=== PATIENT | male | born 1945 | race Caucasian/White ===

== ENCOUNTER 2018-07-18 13:44 | Inpatient (IN) | payer BC, MEDICARE ==
--- NOTE | 2018-07-18 13:58 | ED ---
Lower Extremity Injury HPI - General Chief Complaint: Extremity Injury, Lower Stated Complaint: Fall, hip pain Time Seen by Provider: 07/18/18 13:47 Source: patient, RN notes reviewed Mode of arrival: ambulatory Limitations: no limitations - History of Present Illness Initial Comments: 73-year-old male presents emergency Department chief complaint of right hip pain. Patient states she is cleaning out his vehicle yesterday states that he tripped over the curb and fell onto his right hip. Patient states that he was able to bear tooth pain Into his vehicle drove home states that his daughter helped him get into his house and states that the pain worsened today and was unable to bear weight. Patient denies any head injury or loss consciousness yesterday. Patient said no prior hip fractures. Patient states that he otherwise feels well he denies any any cold-like symptoms, chest pain, shortness breath, nausea vomiting diarrhea constipation. - Related Data Home Medications Medication Instructions Recorded Confirmed Aspirin EC [Ecotrin Low Dose] 81 mg PO DAILY 07/18/18 07/18/18 Esomeprazole Magnesium [NexIUM] 40 mg PO DAILY 07/18/18 07/18/18 Gabapentin [Neurontin] 300 mg PO TID 07/18/18 07/18/18 Isosorbide Mononitrate ER [Imdur] 30 mg PO DAILY 07/18/18 07/18/18 Metoclopramide HCl [Reglan] 2.5 mg PO DAILY 07/18/18 07/18/18 Metoprolol Succinate [Toprol Xl] 100 mg PO DAILY 07/18/18 07/18/18 Nitroglycerin Sl Tabs [Nitrostat] 0.4 mg SUBLINGUAL Q5M PRN 07/18/18 07/18/18 [place]-3 Acid Ethyl Esters [Lovaza] 2 gm PO BID 07/18/18 07/18/18 Ranolazine [Ranexa] 500 mg PO BID 07/18/18 07/18/18 Simvastatin [Zocor] 10 mg PO HS 07/18/18 07/18/18 busPIRone HCl [Buspar] 10 mg PO BID 07/18/18 07/18/18 oxyCODONE HCL [OxyCONTIN] 30 mg PO Q12H 07/18/18 07/18/18 oxyCODONE HCL/ACETAMINOPHEN 1 tab PO Q8H PRN 07/18/18 07/18/18 [Percocet 10-325 mg] Allergies Allergy/AdvReac Type Severity Reaction Status Date / Time No Known Allergies Allergy Verified 07/18/18 14:31 Review of Systems ROS Statement: Those systems with pertinent positive or pertinent negative responses have been documented in the HPI. ROS Other: All systems not noted in ROS Statement are negative. 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 Absent: tenderness, meningismus, lymphadenopathy Respiratory exam: Present: wheezes, decreased breath sounds. Absent: normal lung sounds bilaterally, respiratory distress, rales, rhonchi, stridor Cardiovascular Exam: Present: regular rate, normal rhythm, normal heart sounds. Absent: systolic murmur, diastolic murmur, rubs, gallop, clicks Extremities exam: Present: other (Pulses of the lower extremity equal bilaterally, tenderness the right hip region he is slightly rotated positioning and he has pain with any movement to the right hip) Neurological exam: Present: alert, oriented X3, CN II-XII intact Course Vital Signs 07/18/18 13:47 Temperature 100.4 F H Pulse Rate 96 Respiratory 18 Rate Blood Pressure 131/65 O2 Sat by Pulse 83 L Oximetry - Reevaluation(s) Reevaluation #1: 07/18/18 14:32 Patient received's narcotic pain meds prior arrival via EMS. Does not request more on initial evaluation Disposition Clinical Impression: Closed right hip fracture Disposition: ADMITTED IP TO THIS [facility] Condition: Fair Referrals: Brodie Banks DO [Primary Care Provider] - 1-2 days
--- NOTE | 2018-07-18 14:23 | XR ---
EXAMINATION TYPE: XR chest 1V DATE OF EXAM: 07/18/2018 COMPARISON: NONE HISTORY: Pain, trauma TECHNIQUE: Single frontal view of the chest is obtained. FINDINGS: There is no focal air space opacity, pleural effusion, or pneumothorax seen. The cardiac silhouette size is within normal limits. The osseous structures are intact. IMPRESSION: No acute process.
--- NOTE | 2018-07-18 14:27 | XR ---
EXAMINATION TYPE: XR Hip RT and AP Pelvis DATE OF EXAM: 07/18/2018 COMPARISON: NONE HISTORY: Trauma and pain TECHNIQUE: A single AP view of the pelvis is obtained. Two views of the right hip are obtained. FINDINGS: There is an intertrochanteric right proximal femoral fracture with slight varus deformity and minimal displacement. No dislocation. Degenerative disc changes noted incidentally within the lum bar spine. There are vascular calcifications present. IMPRESSION: Fracture of the proximal right femur.
[2018-07-18] MEDS ORDERED: ONDANSETRON 4 MG/2 ML VIAL IVP PRN (14:40)
[2018-07-18] MEDS: MORPHINE SULFATE 4 MG/ML SYRINGE IV PRN (15:00)
[2018-07-18 15:02] LABS: Basophils % (A) 0 %; Eosinophils # (A) 0.1 k/uL (0-0.7); Eosinophils % (A) 1 %; HCT 39.6 % (39.0-53.0); HGB 13.6 gm/dL (13.0-17.5); Lymphocytes # (A) 1.3 k/uL (1.0-4.8); Lymphocytes % (A) 14 %; MCH 30.9 pg (25.0-35.0); MCHC 34.3 g/dL (31.0-37.0); MCV 90.3 fL (80.0-100.0); Mean Platelet Volume 6.8; Monocytes # (A) 0.6 k/uL (0-1.0); Monocytes % (A) 7 %; Neutrophils # (A) 7.2 k/uL (1.3-7.7); Neutrophils % (A) 78 %; Platelet Count 159 k/uL (150-450); RBC 4.39 m/uL (4.30-5.90); RDW 12.5 % (11.5-15.5); WBC 9.2 k/uL (3.8-10.6)
[2018-07-18 15:15] LABS: ALT 19 U/L (21-72); AST 31 U/L (17-59); Albumin 3.8 g/dL (3.5-5.0); Alkaline Phosphatase 37 U/L (38-126); Anion Gap 9 mmol/L; Blood Urea Nitrogen 19 mg/dL (9-20); Calcium 8.7 mg/dL (8.4-10.2); Carbon Dioxide 27 mmol/L (22-30); Chloride 101 mmol/L (98-107); Glucose 115 mg/dL (74-99); Potassium 4.7 mmol/L (3.5-5.1); Sodium 137 mmol/L (137-145); Total Bilirubin 0.7 mg/dL (0.2-1.3); Total Protein 6.8 g/dL (6.3-8.2)
[2018-07-18 15:24] LABS: INR 1.1 (<1.2); Partial Thromboplastin Time 28.1 sec (22.0-30.0); Prothrombin Time 10.7 sec (9.0-12.0)
[2018-07-18] MEDS ORDERED: NALOXONE 0.4 MG/ML 1 ML VIAL IV PRN (16:52)
[2018-07-18] MEDS ORDERED: oxyCODONE-APAP 10-325MG 1 EACH TAB PO PRN (16:59)
[2018-07-18] MEDS ORDERED: NITROGLYCERIN SL TABS 0.4 MG TAB SUBLINGUAL PRN (16:59)
--- NOTE | 2018-07-18 17:02 | P.HPOR ---
History of Present Illness H&P Date: 07/18/18 Chief Complaint: Right hip fracture Patient is a 73-year-old male who presented to [facility] this afternoon with regards to pain involving the right hip. Patient initially had a fall yesterday evening while he was washing his car, he tripped over the curb and fell onto the hip. Patient was able to ambulate, he was able to get initially into the house and into his room. He woke up this morning, and was unable to put any weight on the right hip. He is brought to [facility] at that time. Upon arrival, imaging and lab tests were done. Images demonstrated a right intertrochanteric hip fracture. I was contacted by the emergency room staff, the case was discussed. I was able to discuss the case, including images attending Dr. Freed. Plan was for admission to our service, with likely surgical intervention. Consults were placed for internal medicine for clearance this. Patient was examined today at bedside, he has family present with him. Prior to my arrival, he did receive a dose of IV pain medication. He is quite sleepy on my exam, but he is able to answer my questions adequately. He denies any other extremity discomfort besides the right hip. Pain medicine seems to be helping with that at this time. He denies any previous surgery involving the right hip. Patient does take heavy dose oral narcotics for a chronic back problem. Patient is prescribed medication by his primary care doctor. Patient currently denies any headaches, lightheadedness, chest pain or shortness of breath, fever chills, abdominal discomfort. Review of Systems Constitutional: Reports as per HPI Past Medical History Past Medical History: Coronary Artery Disease (CAD), COPD, GERD/Reflux, Hyperlipidemia, Hypertension, Memory Impairment, Myocardial Infarction ([place]), Osteoarthritis (OA) Additional Past Medical History / Comment(s): per pt's daughter ,pt had slight heart attack in his 40's. at age 17 head back injuries from farming accident, ahs some mild memory problems."chronic back pain". Last Myocardial Infarction Date:: unk History of Any Multi-Drug Resistant Organisms: None Reported Additional Past Surgical History / Comment(s): surgery on head from farm injury patient states when he was a kid. cortison inj (back) Past Anesthesia/Blood Transfusion Reactions: No Reported Reaction Smoking Status: Current every day smoker - Past Family History Father History Unknown: Yes Additional Family Medical History / Comment(s): never knew his dad Mother Family Medical History: Coronary Artery Disease (CAD) Additional Family Medical History / Comment(s): during open heart Medications and Allergies Home Medications Medication Instructions Recorded Confirmed Type Aspirin EC [Ecotrin Low Dose] 81 mg PO DAILY 07/18/18 07/18/18 History Esomeprazole Magnesium [NexIUM] 40 mg PO DAILY 07/18/18 07/18/18 History Gabapentin [Neurontin] 300 mg PO TID 07/18/18 07/18/18 History Isosorbide Mononitrate ER [Imdur] 30 mg PO DAILY 07/18/18 07/18/18 History Metoclopramide HCl [Reglan] 2.5 mg PO DAILY 07/18/18 07/18/18 History Metoprolol Succinate [Toprol Xl] 100 mg PO DAILY 07/18/18 07/18/18 History Nitroglycerin Sl Tabs [Nitrostat] 0.4 mg SUBLINGUAL Q5M PRN 07/18/18 07/18/18 History [place]-3 Acid Ethyl Esters [Lovaza] 2 gm PO BID 07/18/18 07/18/18 History Ranolazine [Ranexa] 500 mg PO BID 07/18/18 07/18/18 History Simvastatin [Zocor] 10 mg PO HS 07/18/18 07/18/18 History busPIRone HCl [Buspar] 10 mg PO BID 07/18/18 07/18/18 History oxyCODONE HCL [OxyCONTIN] 30 mg PO Q12H 07/18/18 07/18/18 History oxyCODONE HCL/ACETAMINOPHEN 1 tab PO Q8H PRN 07/18/18 07/18/18 History [Percocet 10-325 mg] Allergies Allergy/AdvReac Type Severity Reaction Status Date / Time No Known Allergies Allergy Verified 07/18/18 14:31 Physical Examination Right lower extremity: No obvious open lesions or sores present, no obvious areas of ecchymosis or soft tissue swelling Obvious external rotation and slight shortening of the leg is noted compared to contralateral side Calf is soft, no tenderness with palpation Plantar flexion, dorsiflexion, EHL, FHL are intact Sensation to light touch throughout extremities intact Logroll maneuver reproduces pain of the hip, he is unable to straight leg raise Results - Labs Labs: Abnormal Lab Results - Last 24 Hours (Table) 07/18/18 Range/Units 14:50 Glucose 115 H (74-99) mg/dL ALT 19 L (21-72) U/L Alkaline Phosphatase 37 L (38-126) U/L H & H 07/18/18 Range/Units 14:50 Hgb 13.6 (13.0-17.5) gm/dL Hct 39.6 (39.0-53.0) % Coagulation 07/18/18 Range/Units 14:50 INR 1.1 (<1.2) Result Diagrams: 07/18/18 14:50 07/18/18 14:50 - Diagnostic results Hip x-ray: report reviewed, image reviewed Assessment and Plan Plan: Imaging: AP pelvis and AP right hip user obtained. Images do demonstrate a right intertrochanteric hip fracture Assessment: Right intertrochanteric femur fracture Status post fall from standing Other medical comorbidities Plan: I was able to discuss the case, including the physical exam findings and imaging studies with attending Dr. Freed. We would like to proceed with surgical intervention, more specific an intramedullary nail of the right femur. Our plan is to proceed with this on 07/19/2018. Risk and benefits of the procedure were discussed with the patient's family today bedside, this including but not excluding blood loss, infection, development blood clots, pain stiffness, need for subsequent surgery, risk of mortality, etc. With the patient being slightly drowsy from the pain medication, I will discuss this further with him tomorrow and answer any further questions. After discussing the case with internal medicine, due to his cardiac history and echocardiogram will be ordered, and we will await cardiac recommendations Obtain consent Pain control, IV medication as needed Nothing by mouth after midnight Ramirez catheter placement Nonweightbearing right lower extremity GI and DVT prophylaxis, we'll initiate subcu medication after surgery with plan for orals at discharge Further recommendations to follow Time with Patient: Less than 30
--- NOTE | 2018-07-18 17:25 | P.CONS ---
History of Present Illness - Reason for Consult Consult date: 07/18/18 medical risk stratification, coronary artery disease Requesting physician: George Freed - Chief Complaint right hip pain - History of Present Illness Patient is a 73-year-old male past medical history of atherosclerotic coronary artery disease, tobacco abuse, and GERD who presented to the emergency department after a fall with hip pain. In the ER he underwent a comprehensive evaluation. On arrival he was found to be satting 83% on room air and had a slight fever of 100.4. Initial laboratory analysis showed slightly elevated glucose at 1:15 was otherwise unremarkable. Chest x-ray showed no acute process. EKG is reviewed by myself reveals normal sinus rhythm at a rate of 83. His x-ray showed a right proximal femur fracture. Dr. Freed team was contacted and requested us to see the patient for medical risk stratification. Patient seen and examined at bedside. Yesterday he was cleaning his car when he turned and pivoted and tripped on the curb. He immediately felt pain in his right hip. His daughter was with him and helped him into the car and he drove home. Then overnight last night his hip pain increased. Today he was unable to bear weight on his hip and he presented to the hospital. He denies any syncopal episode, lightheadedness or dizziness, or chest pain with that episode. He did not strike his head. He reports that he has been his typical state of health. No recent cough, cold, fever, chills, shortness of breath, nausea, vomiting, diarrhea, constipation, or dysuria. He does have chest pain at baseline. He sees Dr. Ngo out of [facility]. He reports that for the last several months he has been having chest pain several times monthly. It is always with exertion and never at rest. He takes an aspirin and it seems to relieve itself within about 15 minutes. He has also been using his nitro intermittently. He states it is not associated with shortness of breath, nausea , lightheadedness, or palpitations. To call or chest pain but states it is "feeling" but then states it is in his chest and 8. He was supposed to have a stress test several months ago with his physical therapy teacher missed the appointment. He reports that he has had a stress test but he is unsure when. He has never had a cardiac catheterization, stent to his heart, or bypass surgery. He reports that he does multiple flights of stairs daily without any chest pain or shortness of breath and his home. However he states he would be unable to walk one to 2 city blocks due to his back giving out and back pain. He reports no recent changes in his medications. Review of Systems Pertinent positives and negatives as discussed in HPI, a complete review of systems was performed and all other systems are negative. Past Medical History Past Medical History: Coronary Artery Disease (CAD), COPD, GERD/Reflux, Hyperlipidemia, Hypertension, Memory Impairment, Myocardial Infarction ([place]), Osteoarthritis (OA) Additional Past Medical History / Comment(s): per pt's daughter ,pt had slight heart attack in his 40's. at age 17 head back injuries from farming accident, some mild memory problems."chronic back pain". Last Myocardial Infarction Date:: unk History of Any Multi-Drug Resistant Organisms: None Reported Additional Past Surgical History / Comment(s): surgery on head from farm injury patient states when he was a kid. cortison inj (back) Past Anesthesia/Blood Transfusion Reactions: No Reported Reaction Smoking Status: Current every day smoker Past Alcohol Use History: None Reported Past Drug Use History: None Reported Additional History: Lives alone, no assistive devices - Past Family History Father History Unknown: Yes Additional Family Medical History / Comment(s): never knew his dad Mother Family Medical History: Coronary Artery Disease (CAD) Additional Family Medical History / Comment(s): during open heart in her late 50s Medications and Allergies Home Medications Medication Instructions Recorded Confirmed Type Aspirin EC [Ecotrin Low Dose] 81 mg PO DAILY 07/18/18 07/18/18 History Esomeprazole Magnesium [NexIUM] 40 mg PO DAILY 07/18/18 07/18/18 History Gabapentin [Neurontin] 300 mg PO TID 07/18/18 07/18/18 History Isosorbide Mononitrate ER [Imdur] 30 mg PO DAILY 07/18/18 07/18/18 History Metoclopramide HCl [Reglan] 2.5 mg PO DAILY 07/18/18 07/18/18 History Metoprolol Succinate [Toprol Xl] 100 mg PO DAILY 07/18/18 07/18/18 History Nitroglycerin Sl Tabs [Nitrostat] 0.4 mg SUBLINGUAL Q5M PRN 07/18/18 07/18/18 History [place]-3 Acid Ethyl Esters [Lovaza] 2 gm PO BID 07/18/18 07/18/18 History Ranolazine [Ranexa] 500 mg PO BID 07/18/18 07/18/18 History Simvastatin [Zocor] 10 mg PO HS 07/18/18 07/18/18 History busPIRone HCl [Buspar] 10 mg PO BID 07/18/18 07/18/18 History oxyCODONE HCL [OxyCONTIN] 30 mg PO Q12H 07/18/18 07/18/18 History oxyCODONE HCL/ACETAMINOPHEN 1 tab PO Q8H PRN 07/18/18 07/18/18 History [Percocet 10-325 mg] Allergies Allergy/AdvReac Type Severity Reaction Status Date / Time No Known Allergies Allergy Verified 07/18/18 14:31 Physical Exam Osteopathic Statement: *. No significant issues noted on an osteopathic structural exam other than those noted in the History and Physical/Consult. Vitals: Vital Signs Temp Pulse Resp BP Pulse Ox 07/18/18 14:50 88 18 134/73 97 07/18/18 13:47 100.4 F H 96 18 131/65 83 L Intake and Output 07/18/18 07/18/18 07/18/18 06:59 14:59 22:59 Other: Weight 70.307 kg General: non toxic, mild distress, appears at stated age, normal weight Derm: no unusual rashes/lesions no unusual ecchymoses, warm, dry Head: atraumatic, normocephalic, symmetric Eyes: EOMI, no lid lag, anicteric sclera, pupils pin point ENT: Nose and ears atraumatic, no thrush, no pharyngeal erythema Neck: No thyromegaly, no cervical lymphadenopathy, trachea midline, supple Mouth: no lip lesion, mucus membranes moist Cardiovascular: S1S2 reg, no murmur, positive posterior tibial pulse bilateral, no edema, capillary refill less than 2 seconds Lungs: decreased bs bilateral, no rhonchi, no rales , no accessory muscle use Abdominal: soft, nontender to palpation, no guarding, no appreciable organomegaly, normal bowel sounds Ext: no gross muscle atrophy, muscle strength 5 out of 5 in b/l upper extremities and Left lower extremity grossly, can wiggle toes on right nothing more due to pain,, no contractures, Neuro: CN II-XI grossly intact, light touch intact all 4 extremities, finger to nose within normal limits, Psych: Alert, oriented, appropriate affect, slightly confused due to morphine Results CBC & Chem 7: 07/18/18 14:50 07/18/18 14:50 Labs: Abnormal Lab Results - Last 24 Hours (Table) 07/18/18 Range/Units 14:50 Glucose 115 H (74-99) mg/dL ALT 19 L (21-72) U/L Alkaline Phosphatase 37 L (38-126) U/L Comments: EKG as reviewed by myself reveals normal sinus rhythm at a rate of 83, normal axis, no ST-T wave changes, and normal intervals Assessment and Plan Assessment: Right proximal femur fracture -Management per orthopedic surgery -Will ask cardiology to evaluate the patient for clearance secondary to recurrent chest pain with history of coronary artery disease -Maintain nothing by mouth after midnight status -Pain control, home pain medications were resumed - insert palma Chest pain with exertion -Continue home Imdur, beta agata, Ranexa -Cardiology evaluation -Obtain records from outpatient physical therapy teacher Dr. Ngo out of [facility] -Echocardiogram in a.m. -Currently chest pain free GERD -Continue PPI -Hold Reglan in combination with pain medications Hypertension, controlled -Continue with metoprolol -Follow blood pressures Dyslipidemia -Statin therapy Thank you for allowing us to participate in the care of this patient. Do not hesitate to contact us with questions. Someone can be reached from the [facility] hospitalist group at all hours of the day at [phone]. Red team during day time hours [phone]. DVT: SCD Surrogate decision: Saida, [id number] Code status: Full
[2018-07-18] MEDS: oxyCODONE ER 15 MG TAB.ER.12H PO SCH (21:55)
[2018-07-18] MEDS: FAMOTIDINE 20 MG TAB PO SCH (21:56)
[2018-07-18] MEDS: GABAPENTIN 300 MG CAP PO SCH (21:56)
[2018-07-18] MEDS: RANOLAZINE 500 MG TAB.ER.12H PO SCH (21:56)
[2018-07-18] MEDS: busPIRone HCl 10 MG TAB PO SCH (21:56)
[2018-07-18] MEDS: ATORVASTATIN 10 MG TAB PO SCH (21:56)
[2018-07-18] MEDS: OMEGA ACID ETHYL ESTERS PO SCH (22:11)
[2018-07-18] MEDS ORDERED: HYDROmorphone 0.5 MG/0.5 ML SYRINGE IVP PRN (22:21)
[2018-07-18] MEDS ORDERED: MORPHINE SULFATE 4 MG/ML SYRINGE IV PRN (22:21)
[2018-07-18] MEDS ORDERED: LACTATED RINGERS 1,000 ML IV SCH (22:30)
[2018-07-19 00:30] LABS: Appearance,Urine Clear (Clear); Bilirubin,Urine Negative (Negative); Blood,Urine Negative (Negative); Color,Urine Yellow; Glucose,Urine (UA) Negative (Negative); Ketones,Urine Negative (Negative); Leukocyte Esterase,Urine Negative (Negative); Nitrite,Urine Negative (Negative); Protein,Urine Trace (Negative); Specific Gravity,Urine 1.021 (1.001-1.035)
[2018-07-19] MEDS: oxyCODONE ER 15 MG TAB.ER.12H PO SCH ×2 (06:02→20:04)
[2018-07-19] MEDS: OMEGA ACID ETHYL ESTERS PO SCH ×2 (07:49→21:11)
[2018-07-19] MEDS: FAMOTIDINE 20 MG TAB PO SCH (07:49)
[2018-07-19] MEDS: MORPHINE SULFATE 4 MG/ML SYRINGE IV PRN ×3 (07:51→21:58)
[2018-07-19] MEDS: NICOTINE 21MG/24HR PATCH TRANSDERM SCH (07:56)
[2018-07-19] MEDS: RANOLAZINE 500 MG TAB.ER.12H PO SCH ×2 (07:57→21:18)
[2018-07-19] MEDS: METOPROLOL SUCCINATE (ER) 100 MG TAB.ER.24H PO SCH ×2 (07:57→07:59)
[2018-07-19] MEDS: ISOSORBIDE MONONITRATE ER 30 MG TAB.ER.24H PO SCH (07:57)
[2018-07-19] MEDS: busPIRone HCl 10 MG TAB PO SCH ×2 (07:58→21:18)
[2018-07-19] MEDS: PANTOPRAZOLE 40 MG TABLET PO SCH (08:00)
[2018-07-19] MEDS: GABAPENTIN 300 MG CAP PO SCH ×3 (08:35→21:18)
[2018-07-19 09:10] LABS: HCT 35.3 % (39.0-53.0); HGB 11.9 gm/dL (13.0-17.5); MCH 30.8 pg (25.0-35.0); MCHC 33.7 g/dL (31.0-37.0); MCV 91.5 fL (80.0-100.0); Mean Platelet Volume 6.7; Platelet Count 119 k/uL (150-450); RBC 3.86 m/uL (4.30-5.90); RDW 12.6 % (11.5-15.5); WBC 8.9 k/uL (3.8-10.6)
[2018-07-19 09:49] LABS: Anion Gap 6 mmol/L; Blood Urea Nitrogen 23 mg/dL (9-20); Calcium 8.3 mg/dL (8.4-10.2); Carbon Dioxide 29 mmol/L (22-30); Chloride 101 mmol/L (98-107); Glucose 103 mg/dL (74-99); Potassium 4.5 mmol/L (3.5-5.1); Sodium 136 mmol/L (137-145)
--- NOTE | 2018-07-19 10:29 | ECHOF ---
Referral Reason:chest pain MEASUREMENTS -------- HEIGHT: 175.3 cm WEIGHT: 70.3 kg BP: 127/66 RVIDd: 3.2 cm (< 3.3) IVSd: 1.2 cm (0.6 - 1.1) LVIDd: 3.9 cm (3.9 - 5.3) LVPWd: 1.3 cm (0.6 - 1.1) IVSs: 1.7 cm LVIDs: 2.7 cm LVPWs: 2.1 cm LA Diam: 3.5 cm (2.7 - 3.8) LAESV Index (A-L): 29.39 ml/m Ao Diam: 4.0 cm (2.0 - 3.7) AV Cusp: 2.1 cm (1.5 - 2.6) MV EXCURSION: 16.659 mm (> 18.000) MV EF SLOPE: 87 mm/s (70 - 150) EPSS: 1.4 cm MV E Ben: 0.83 m/s MV DecT: 271 ms MV A Ben: 0.86 m/s MV E/A Ratio: 0.96 RAP: 5.00 mmHg RVSP: 27.77 mmHg FINDINGS -------- Sinus rhythm. The left ventricular size is normal. There is mild concentric left ventricular hypertrophy. Overa ll left ventricular systolic function is normal with, an EF between 60 - 65 %. The right ventricle is normal in size. LA is midly dilated 29-33ml/m2. The right atrium is normal in size. The aortic valve is trileaflet and appears structurally normal. The mitral valve is normal. The tricuspid valve appears structurally normal. There is no pulmonic regurgitation present. The aortic root is dilated measuring 4.0cm. Normal inferior vena cava with normal inspiratory collapse consistent with estimated right atrial pre ssure of 5 mmHg. There is no pericardial effusion. CONCLUSIONS -------- 1. Sinus rhythm. 2. The left ventricular size is normal. 3. There is mild concentric left ventricular hypertrophy. 4. Overall left ventricular systolic function is normal with, an EF between 60 - 65 %. 5. The right ventricle is normal in size. 6. LA is midly dilated 29-33ml/m2. 7. The right atrium is normal in size. 8. The aortic valve is trileaflet and appears structurally normal. 9. The mitral valve is normal. 10. The tricuspid valve appears structurally normal. 11. There is no pulmonic regurgitation present. 12. The aortic root is dilated measuring 4.0cm. 13. Normal inferior vena cava with normal inspiratory collapse consistent with estimated right atrial pressure of 5 mmHg. 14. There is no pericardial effusion. SECURITY INFRASTRUCTURE ENGINEER: Sangeetha Strickland RDCS
[2018-07-19] MEDS ORDERED: IPRATROPIUM-ALBUTEROL 3 ML NEB INHALATION PRN (10:38)
--- NOTE | 2018-07-19 11:09 | P.PN ---
Subjective Progress Note Date: 07/19/18 Principal diagnosis: R hip fracture Patient was seen and examined. No acute events overnight. Patient reports hip pain, 8 out of 10 in severity, controlled with current medications. He was initially scheduled for surgery today, pending cardiology evaluation. patient reports multiple episodes of chest pain in the past, at rest and with exertion, alleviated with nitroglycerin and aspirin. He sees Dr. Ngo at [facility].he currently denies any chest pain, shortness of breath, palpitations. Echocardiogram pending. Objective - Vital Signs Vital signs: Vital Signs Temp 98.8 F 07/19/18 06:07 Pulse 76 07/19/18 06:07 Resp 18 07/19/18 06:07 BP 127/66 07/19/18 06:07 Pulse Ox 92 L 07/19/18 06:07 Intake & Output 07/18/18 07/19/18 07/19/18 18:59 06:59 18:59 Intake Total 260 Balance 260 Weight 70.307 kg Intake: Intake, IV Titration 20 Amount Lactated Ringers 1,000 ml 20 @ 20 mls/hr IV .Q24H [facility] Rx#:[id number] Oral 240 Other: Voiding Method Indwelling Catheter - Exam General: [non toxic], [no distress], [appears at stated age] Derm: [warm], [dry] Head: [atraumatic], [normocephalic], [symmetric] Eyes: [EOMI], [no lid lag], [anicteric sclera] Mouth: [no lip lesion], [mucus membranes moist] Cardiovascular: [S1S2 reg], [no murmur], [positive DP pulse bilateral] Lungs: [mild expiratory wheezing bilateral], [no rhonchi, no rales] , [no accessory muscle use] Abdominal: [soft], [ nontender to palpation], [no guarding], [no appreciable organomegaly] Ext: [no gross muscle atrophy], [no edema], [externally rotated, shortened RLE] Neuro: [ CN II-XI grossly intact], [weakness of right lower extremity] Psych: [Alert], [oriented], [appropriate affect] - Labs CBC & Chem 7: 07/19/18 08:11 07/19/18 08:11 Labs: Abnormal Lab Results - Last 24 Hours (Table) 07/18/18 07/18/18 07/19/18 Range/Units 14:50 23:32 08:11 RBC 3.86 L (4.30-5.90) m/uL Hgb 11.9 L (13.0-17.5) gm/dL Hct 35.3 L (39.0-53.0) % Plt Count 119 L (150-450) k/uL Sodium (137-145) mmol/L BUN (9-20) mg/dL Glucose 115 H (74-99) mg/dL Calcium (8.4-10.2) mg/dL ALT 19 L (21-72) U/L Alkaline Phosphatase 37 L (38-126) U/L Urine Protein Trace H (Negative) 07/19/18 Range/Units 08:11 RBC (4.30-5.90) m/uL Hgb (13.0-17.5) gm/dL Hct (39.0-53.0) % Plt Count (150-450) k/uL Sodium 136 L (137-145) mmol/L BUN 23 H (9-20) mg/dL Glucose 103 H (74-99) mg/dL Calcium 8.3 L (8.4-10.2) mg/dL ALT (21-72) U/L Alkaline Phosphatase (38-126) U/L Urine Protein (Negative) Assessment and Plan Assessment: Assessment and Plan 1. R proximal femoral fracture: Confirmed on XR. Orthopedic Sx on board. Pain control with Tylenol, Morphine IV and Dilaudid IV PRN. Oxycodone 15 mg PO BID scheduled. Fall precautions. FU Orthopedic Sx, PT/OT, Vit D 2. Chest pain: Exertional and at rest. Attempting to obtain records from Dr. Huber Escoto. Echo shows EF 60-65%. No history of cardiac cath, stent placement or CABG. Will continue home medication of Imdur 30 mg PO QD, Metoprolol 100 mg PO QD, Ranexa 500 mg PO BID. Nitrostat PRN for pain. FU Cardiology for medical clearance 3. COPD: Stable. Continue DuoNeb as needed for shortness of breath and wheezing. 4. Hypertension: BP 127/66. Continue Imdur and Metoprolol. Adequate pain control. Monitor vitals, adjust medication as necessary. 5. Hyperlipidemia: Lipitor 10 mg PO QHS. 6. Smoker: Nicotine patch 21 mg TOP QD. 7. DVT/GI Prophylaxis: Pepcid 20 mg PO BID. SCD boots only. Questionable cardiac history, need to obtain records from Angie Escoto. Discussed with cardiology RN CVICU, Dr. Alexis to clear patient for surgery. Patient is high risk, thought benefits of surgery will outweigh the risks. Will follow cardiology recommendations.
[2018-07-19] MEDS ORDERED: IV FLUID CONTINUATION 800 ML IV ONE (12:22)
[2018-07-19] MEDS ORDERED: ceFAZolin IN SWFI 2 GM/20 ML SYRINGE IVP STA (12:31)
[2018-07-19] MEDS ORDERED: ceFAZolin 1,000 MG in SODIUM CHLORIDE 0.9% 1,000 ML IRRIGATION ONE (13:12)
--- NOTE | 2018-07-19 14:16 | P.OP ---
Date of Procedure: 07/19/18 Preoperative Diagnosis: Displaced right intertrochanteric femur fracture Postoperative Diagnosis: Same Procedure(s) Performed: Trochanteric nailing right intertrochanteric femur fracture Implants: [employer] 11.5 mm x 180 mm trochanteric nail, 95 mm lag screw, 90 mm compression screw Anesthesia: spinal Surgeon: George Freed Estimated Blood Loss (ml): 50 Pathology: none sent Condition: stable Disposition: PACU Indications for Procedure: The patient is a 73-year-old male who presents with right hip pain after falling the day before injuring himself. Upon evaluation he was noted have a displaced right intertrochanteric femur fracture. A discussion of the risks and benefits of operative intervention was made with patient and his family. He underwent preoperative medical and cardiac evaluation. Specific risks of the procedure to include infection, neurovascular injury, development of blood clots, possible development of nonunion/malunion, and possible need for subsequent procedures was discussed. Informed consent was obtained. Operative Findings: As below Description of Procedure: The patient was brought to the operating room, and after induction of spinal anesthesia was placed supine on the fracture table. The fracture was reduced with longitudinal traction and internal rotation of the right lower extremity. This was verified on AP and lateral views with fluoroscopy. The right hip was then prepped and draped in normal fashion. A 5 cm incision was then made starting small to the greater trochanter. The skin was incised sharply. Subcu tissues were divided sharply. The gluteus ines fascia was split in line with the skin incision for the muscle fibers were bluntly dissected. The greater tuberosity was then palpated. A starting awl was made in the medial tip of the greater trochanter with the aid of fluoroscopy. A guidewire was then inserted down the canal. The proximal portion was reamed with the appropriate reamer to the level of the lesser trochanter. The distal shaft was reamed up to 13 mm. There is good distal chatter. An 11.5 mm x 180 mm short trochanteric nail was then gently inserted over the guidewire. The guidewire was then removed. The appropriate drill guide was placed for placement of the leg screw. A guidepin was placed within 5 mm the articular surface on the AP and lateral views. A compression screw hole was drilled to the depth of 90 mm. The 95 mm lag screw was then inserted over the guidepin to within 5 mm of the articular surface. The compression screw was inserted to the appropriate depth. Final fluoroscopic views on the AP and lateral showed adequate reduction of the fracture and placement of the implant. The wounds were irrigated with normal saline. The fascia was closed with running #1 Vicryl suture. The subcutaneous tissues were reapproximated interrupted 2-0 Vicryl sutures. The skin was reapproximated with esdras. A sterile dressing was applied. The patient was awoken from sedation and transferred to recovery room in fair condition. Blood loss was estimated at 50 mL. No complications were incurred. Sponge and needle counts were correct at the end the case.
--- NOTE | 2018-07-19 14:20 | XR ---
EXAMINATION TYPE: XR Hip Complete RT DATE OF EXAM: 07/19/2018 COMPARISON: NONE HISTORY: Postop TECHNIQUE: One view submitted. FINDINGS: There is postsurgical change in near anatomic alignment. There is soft tissue edema and emphysema. IMPRESSION: 1. Postoperative change. Appears in near-anatomic alignment.
--- NOTE | 2018-07-19 14:27 | FL ---
EXAMINATION TYPE: FL guidance operating room DATE OF EXAM: 07/19/2018 HISTORY: Flouroscopy time 23 seconds of fluoroscopy provided. IMPRESSION: 1. Fluoroscopy time.
--- NOTE | 2018-07-19 14:35 | P.CRDCN ---
History of Present Illness History of present illness: Mr. Small is a pleasant 73 year old male past medical history significant for coronary artery disease with recommended medical therapy per his formula checker Dr. Ngo. He underwent catheterization 2009 which revealed 40% narrowing mid LAD, 30-40% distal stenosis of circumflex, first OM 30% narrowing, 40-50% narrowing of mid RCA. He also has dyslipidemia, hypertension, GERD, COPD and chronic nicotine dependence. We have been asked to see him in consultation for pre-operative evaluation. He states he was cleaning out the back of his car and quickly turned around and tripped backwards over the curb. he suffered a right intertrochanteric fracture. He is seen by myself and Dr. Alexis resting in bed laying flat. He is complaining of significant pain to the right lower leg. He denies chest pain, shortness of breath, dizziness or palpitations. He is somewhat of a poor historian regarding his history and why he is on certain medications. Records were obtained from his formula checker. Echocardiogram obtained reveals preserved LV systolic function with EF 60-65%, mildly dilated LA with no valvular abnormalities. EKG reveals sinus mechanism with no acute ST or T-wave abnormalities. Chest xray negative for an acute cardiopulmonary process. Laboratory data reviewed, hemoglobin 11.9, platelets 119, sodium 136, potassium 4.5, creatinine 0.8. Current cardiac medications include Imdur 30 mg daily, Toprol-XL 100 mg daily, aspirin 81 mg daily, Ranexa 500 mg twice a day and simvastatin 10 mg daily. He also takes OxyContin, Percocet, magnesium supplementation and Neurontin. Review of Systems At the time of my exam: CONSTITUTIONAL: Denies fever. Denies chills. EYES: Denies blurred vision. Denies vision changes. Denies eye pain. EARS, NOSE, MOUTH & THROAT: Denies headache. Denies sore throat. Denies ear pain. CARDIOVASCULAR: Denies chest pain. Denies shortness of breath. Denies orthopnea. Denies PND. Denies palpitations. RESPIRATORY: Denies cough. GASTROINTESTINAL: Denies abdominal pain. Denies diarrhea. Denies constipation. Denies nausea. Denies vomiting. MUSCULOSKELETAL: complains of pain to the right lower extremity. INTEGUMENTARY: Denies pruitis. Denies rash. NEUROLOGIC: Denies numbness. Denies tingling. Denies weakness. PSYCHIATRIC: Denies anxiety. Denies depression. ENDOCRINE: Denies fatigue. Denies weight change. Denies polydipsia. Denies polyurina. GENITOURINARY: Denies burning, hematuria or urgency with micturation. HEMATOLOGIC: Denies history of anemia. Denies bleeding. Past Medical History Past Medical History: Coronary Artery Disease (CAD), COPD, GERD/Reflux, Hyperlipidemia, Hypertension, Memory Impairment, Myocardial Infarction (ND), Osteoarthritis (OA) Additional Past Medical History / Comment(s): per pt's daughter ,pt had slight heart attack in his 40's. at age 17 head back injuries from farming accident, some mild memory problems."chronic back pain". Last Myocardial Infarction Date:: unk History of Any Multi-Drug Resistant Organisms: None Reported Additional Past Surgical History / Comment(s): surgery on head from farm injury patient states when he was a kid. cortison inj (back) Past Anesthesia/Blood Transfusion Reactions: No Reported Reaction Smoking Status: Current every day smoker Past Alcohol Use History: None Reported Past Drug Use History: None Reported - Past Family History Father History Unknown: Yes Additional Family Medical History / Comment(s): never knew his dad Mother Family Medical History: Coronary Artery Disease (CAD) Additional Family Medical History / Comment(s): during open heart in her late 50s Medications and Allergies Home Medications Medication Instructions Recorded Confirmed Type Aspirin EC [Ecotrin Low Dose] 81 mg PO DAILY 07/18/18 07/18/18 History Esomeprazole Magnesium [NexIUM] 40 mg PO DAILY 07/18/18 07/18/18 History Gabapentin [Neurontin] 300 mg PO TID 07/18/18 07/18/18 History Isosorbide Mononitrate ER [Imdur] 30 mg PO DAILY 07/18/18 07/18/18 History Metoclopramide HCl [Reglan] 2.5 mg PO DAILY 07/18/18 07/18/18 History Metoprolol Succinate [Toprol Xl] 100 mg PO DAILY 07/18/18 07/18/18 History Nitroglycerin Sl Tabs [Nitrostat] 0.4 mg SUBLINGUAL Q5M PRN 07/18/18 07/18/18 History [place]-3 Acid Ethyl Esters [Lovaza] 2 gm PO BID 07/18/18 07/18/18 History Ranolazine [Ranexa] 500 mg PO BID 07/18/18 07/18/18 History Simvastatin [Zocor] 10 mg PO HS 07/18/18 07/18/18 History busPIRone HCl [Buspar] 10 mg PO BID 07/18/18 07/18/18 History oxyCODONE HCL [OxyCONTIN] 30 mg PO Q12H 07/18/18 07/18/18 History oxyCODONE HCL/ACETAMINOPHEN 1 tab PO Q8H PRN 07/18/18 07/18/18 History [Percocet 10-325 mg] Allergies Allergy/AdvReac Type Severity Reaction Status Date / Time No Known Allergies Allergy Verified 07/19/18 11:58 Physical Exam Vitals: Vital Signs Temp Pulse Pulse Pulse Resp BP BP 07/19/18 14:10 98.2 F 74 14 110/58 07/19/18 12:16 98.4 F 82 16 135/63 07/19/18 11:52 98.9 F 69 18 07/19/18 11:13 72 07/19/18 10:58 72 07/19/18 06:07 98.8 F 76 18 07/18/18 20:45 99.5 F 78 16 07/18/18 16:38 99.9 F H 77 18 07/18/18 16:15 98.7 F 81 18 113/74 07/18/18 14:50 88 18 134/73 BP Pulse Ox 07/19/18 14:10 95 07/19/18 12:16 94 L 07/19/18 11:52 117/66 93 L 07/19/18 11:13 07/19/18 10:58 07/19/18 06:07 127/66 92 L 07/18/18 20:45 127/70 100 07/18/18 16:38 106/60 96 07/18/18 16:15 96 07/18/18 14:50 97 Intake and Output 07/18/18 07/19/18 07/19/18 22:59 06:59 14:59 Intake Total 240 20 501 Output Total 50 Balance 240 20 451 Intake: IV 501 Intake, IV Titration 20 Amount Lactated Ringers 1,000 ml 20 @ 20 mls/hr IV .Q24H [facility] Rx#:[id number] Oral 240 Output: Estimated Blood Loss 50 Other: Voiding Method Indwelling Catheter Blood pressure 127/66 heart rate 76 afebrile maintaining oxygen saturation on room air GENERAL: This is a 73-year-old male in no apparent distress at the time of my examination. HEENT: Head is atraumatic, normocephalic. Pupils are equal, round. Sclerae anicteric. Conjunctivae are clear. Mucous membranes of the mouth are moist. Neck is supple. There is no jugular venous distention. No carotid bruit is heard. LUNGS: Expiratory wheeze. No rales or rhonch. No chest wall tenderness is noted on palpation or with deep breathing. HEART: Regular rate and rhythm with systolic ejection murmur at the base, no rubs or gallops. S1 and S2 heard. ABDOMEN: Soft, nontender. Bowel sounds are heard. No organomegaly noted. EXTREMITIES: No evidence of peripheral edema and no calf tenderness noted. VASCULAR: Radial and dorsalis pedis pulses palpated, no evidence of clubbing. NEUROLOGIC: Patient is awake, alert and oriented x3. Results 07/19/18 08:11 07/19/18 08:11 Cardiac Enzymes 07/18/18 Range/Units 14:50 AST 31 (17-59) U/L Coagulation 07/18/18 Range/Units 14:50 PT 10.7 (9.0-12.0) sec APTT 28.1 (22.0-30.0) sec CBC 07/18/18 07/19/18 Range/Units 14:50 08:11 WBC 9.2 8.9 (3.8-10.6) k/uL RBC 4.39 3.86 L (4.30-5.90) m/uL Hgb 13.6 11.9 L (13.0-17.5) gm/dL Hct 39.6 35.3 L (39.0-53.0) % Plt Count 159 119 L (150-450) k/uL Comprehensive Metabolic Panel 07/18/18 07/19/18 Range/Units 14:50 08:11 Sodium 137 136 L (137-145) mmol/L Potassium 4.7 4.5 (3.5-5.1) mmol/L Chloride 101 101 (98-107) mmol/L Carbon Dioxide 27 29 (22-30) mmol/L BUN 19 23 H (9-20) mg/dL Creatinine 0.81 0.80 (0.66-1.25) mg/dL Glucose 115 H 103 H (74-99) mg/dL Calcium 8.7 8.3 L (8.4-10.2) mg/dL AST 31 (17-59) U/L ALT 19 L (21-72) U/L Alkaline Phosphatase 37 L (38-126) U/L Total Protein 6.8 (6.3-8.2) g/dL Albumin 3.8 (3.5-5.0) g/dL Current Medications Generic Name Dose Route Start Last Admin Trade Name Freq PRN Reason Stop Dose Admin Acetaminophen 650 mg 07/18/18 16:52 Tylenol Tab PO Q6HR PRN Mild Pain or Fever > 100.5 Albuterol/Ipratropium 3 ml 07/19/18 10:38 07/19/18 10:58 Duoneb 0.5 Mg-3 Mg/3 Ml Soln INHALATION 3 ml RT-QID PRN Administration Shortness Of Breath Or Wheezing Atorvastatin Calcium 10 mg 07/18/18 21:00 07/18/18 21:56 Lipitor PO 10 mg HS [facility] Administration Buspirone HCl 10 mg 07/18/18 21:00 07/19/18 07:58 Buspar PO 10 mg BID [facility] Administration Famotidine 20 mg 07/18/18 21:00 07/19/18 07:49 Pepcid PO Not Given BID [facility] Gabapentin 300 mg 07/18/18 22:00 07/19/18 08:35 Neurontin PO 300 mg TID [facility] Administration Hydromorphone HCl 0.5 mg 07/18/18 22:21 Dilaudid IVP 07/19/18 22:22 Q5M PRN Pain Control Lactated Ringer's 1,000 mls @ 20 mls/hr 07/18/18 22:30 07/19/18 04:57 Lactated Ringers IV 20 mls/hr .Q24H [facility] Administration Isosorbide Mononitrate 30 mg 07/19/18 09:00 07/19/18 07:57 Imdur PO 30 mg DAILY [facility] Administration Metoprolol Succinate 100 mg 07/19/18 09:00 07/19/18 07:59 Toprol Xl PO 100 mg DAILY [facility] Administration Morphine Sulfate 4 mg 07/18/18 14:40 07/19/18 07:51 Morphine Sulfate (Inj) IV 4 mg Q4HR PRN Administration Severe Pain Morphine Sulfate 4 mg 07/18/18 22:21 Morphine Sulfate (Inj) IV 07/19/18 22:22 ONCE PRN Pain Naloxone HCl 0.2 mg 07/18/18 16:52 Narcan IV Q2M PRN Opioid Reversal Nicotine 1 patch 07/19/18 09:00 07/19/18 07:56 Habitrol 21mg/24hr Patch TRANSDERM Not Given DAILY [facility] Nitroglycerin 0.4 mg 07/18/18 16:59 Nitrostat SUBLINGUAL Q5M PRN Angina Patient's Own Med ( 2 gm 07/18/18 21:00 07/19/18 07:49 [place]-3 Acid Ethyl PO Not Given Esters [Lovaza] 2 Gm BID [facility] ) Ondansetron HCl 4 mg 07/18/18 14:40 07/18/18 14:57 Zofran IVP 4 mg Q8HR PRN Administration Nausea And Vomiting Oxycodone HCl 30 mg 07/18/18 18:00 07/19/18 06:02 Oxycontin 15mg E.R. PO 30 mg Q12H [facility] Administration Oxycodone/Acetaminophen 1 each 07/18/18 16:59 Percocet 10-325 PO Q8H PRN Pain Pantoprazole Sodium 40 mg 07/19/18 07:30 07/19/18 08:00 Protonix PO Not Given AC-BRKFST [facility] Ranolazine 500 mg 07/18/18 21:00 07/19/18 07:57 Ranexa PO 500 mg BID [facility] Administration Intake and Output 07/18/18 07/19/18 07/19/18 22:59 06:59 14:59 Intake Total 240 20 501 Output Total 50 Balance 240 20 451 Intake: IV 501 Intake, IV Titration 20 Amount Lactated Ringers 1,000 ml 20 @ 20 mls/hr IV .Q24H [facility] Rx#:[id number] Oral 240 Output: Estimated Blood Loss 50 Other: Voiding Method Indwelling Catheter 07/19/18 08:11 07/19/18 08:11 Assessment and Plan Assessment: ASSESSMENT Right intertrochanteric fracture s/p fall History of multi-vessel coronary artery disease. Follows with formula checker Dr. Ngo Hypertension Dyslipidemia Chronic nicotine dependence PLAN Echo has been has been obtained and reviewed. Add on duo neb treatments PRN for wheezing. Give one now before surgery. He is a moderate cardiac risk for surgical intervention. Cautious fluid administration intra-operatively and post-operatively. Maintain optimal blood pressure control. Resume home medications as previously ordered. We will continue to follow post-operatively. Nurse Practitioner note has been reviewed, I agree with a documented findings and plan of care. Patient was seen and examined.
[2018-07-19 18:09] LABS: Basophils % (A) 0 %; Eosinophils # (A) 0.1 k/uL (0-0.7); Eosinophils % (A) 1 %; HCT 34.4 % (39.0-53.0); HGB 11.7 gm/dL (13.0-17.5); Lymphocytes # (A) 1.3 k/uL (1.0-4.8); Lymphocytes % (A) 15 %; MCH 31.4 pg (25.0-35.0); MCHC 33.9 g/dL (31.0-37.0); MCV 92.8 fL (80.0-100.0); Mean Platelet Volume 7.2; Monocytes # (A) 0.5 k/uL (0-1.0); Monocytes % (A) 5 %; Neutrophils # (A) 6.9 k/uL (1.3-7.7); Neutrophils % (A) 78 %; Platelet Count 133 k/uL (150-450); RBC 3.71 m/uL (4.30-5.90); RDW 12.6 % (11.5-15.5); WBC 8.8 k/uL (3.8-10.6)
[2018-07-19] MEDS: HYDROcodone/APAP 5-325MG 1 EACH TAB PO PRN (19:22)
[2018-07-19] MEDS: ATORVASTATIN 10 MG TAB PO SCH (21:18)
[2018-07-19] MEDS: ceFAZolin IN SWFI 2 GM/20 ML SYRINGE IVP SCH (21:18)
[2018-07-20] MEDS: oxyCODONE ER 15 MG TAB.ER.12H PO SCH ×2 (05:31→17:48)
[2018-07-20] MEDS: ceFAZolin IN SWFI 2 GM/20 ML SYRINGE IVP SCH (05:32)
[2018-07-20] MEDS: OMEGA ACID ETHYL ESTERS PO SCH ×2 (08:04→21:20)
[2018-07-20 08:50] LABS: HCT 32.4 % (39.0-53.0); HGB 10.8 gm/dL (13.0-17.5); MCH 30.5 pg (25.0-35.0); MCHC 33.5 g/dL (31.0-37.0); MCV 91.1 fL (80.0-100.0); Platelet Count 131 k/uL (150-450); RBC 3.55 m/uL (4.30-5.90); RDW 12.4 % (11.5-15.5); WBC 8.5 k/uL (3.8-10.6)
[2018-07-20 09:00] LABS: ALT 20 U/L (21-72); AST 17 U/L (17-59); Alkaline Phosphatase 35 U/L (38-126); Anion Gap 5 mmol/L; Blood Urea Nitrogen 17 mg/dL (9-20); Calcium 8.3 mg/dL (8.4-10.2); Carbon Dioxide 30 mmol/L (22-30); Chloride 99 mmol/L (98-107); Glucose 132 mg/dL (74-99); Potassium 4.3 mmol/L (3.5-5.1); Sodium 134 mmol/L (137-145); Total Bilirubin 0.6 mg/dL (0.2-1.3); Total Protein 5.8 g/dL (6.3-8.2)
[2018-07-20] MEDS: RANOLAZINE 500 MG TAB.ER.12H PO SCH ×2 (09:16→21:20)
[2018-07-20] MEDS: RIVAROXABAN 10 MG TAB PO SCH (09:16)
[2018-07-20] MEDS: ISOSORBIDE MONONITRATE ER 30 MG TAB.ER.24H PO SCH (09:16)
[2018-07-20] MEDS: GABAPENTIN 300 MG CAP PO SCH ×3 (09:16→21:20)
[2018-07-20] MEDS: PANTOPRAZOLE 40 MG TABLET PO SCH (09:16)
[2018-07-20] MEDS: busPIRone HCl 10 MG TAB PO SCH ×2 (09:16→21:20)
[2018-07-20] MEDS: NICOTINE 21MG/24HR PATCH TRANSDERM SCH (09:17)
[2018-07-20] MEDS: METOPROLOL SUCCINATE (ER) 100 MG TAB.ER.24H PO SCH (09:17)
[2018-07-20] MEDS: HYDROcodone/APAP 5-325MG 1 EACH TAB PO PRN (09:17)
--- NOTE | 2018-07-20 12:20 | P.PN ---
Subjective Progress Note Date: 07/20/18 Principal diagnosis: Status post trochanteric nailing right intertrochanteric femur fracture Patient seen today resting in his hospital chair, he appears comfortable. His pain is controlled at this time. He is ambulating minimally at this time. Urinary catheter is still in place. Denies any chest pain or shortness of breath. Objective - Vital Signs Vital signs: Vital Signs Temp 98.0 F 07/20/18 07:03 Pulse 84 07/20/18 07:03 Resp 18 07/20/18 07:03 BP 150/71 07/20/18 07:03 Pulse Ox 94 L 07/20/18 07:03 Intake & Output 07/19/18 07/20/18 07/20/18 18:59 06:59 18:59 Intake Total 651 600 Output Total 50 700 Balance 601 -100 Intake: IV 501 600 0.9 600 Intake, IV Titration 150 Amount Lactated Ringers 1,000 ml 150 @ 20 mls/hr IV .Q24H [facility] Rx#:[id number] Output: Urine 700 Uretheral (Ramirez) 700 Estimated Blood Loss 50 Other: Voiding Method Indwelling Catheter Indwelling Catheter - Exam Right lower extremity: Martina are all in good position and condition, no obvious drainage. Minimal soft tissue swelling on the lateral aspect of the hip. Distal neurovascular exam is intact of the lower extremity. Logroll maneuver of the hip reproduces minimal discomfort - Labs CBC & Chem 7: 07/20/18 08:28 07/20/18 08:28 Labs: Abnormal Lab Results - Last 24 Hours (Table) 07/19/18 07/20/18 07/20/18 Range/Units 15:59 08:28 08:28 RBC 3.71 L 3.55 L (4.30-5.90) m/uL Hgb 11.7 L 10.8 L (13.0-17.5) gm/dL Hct 34.4 L 32.4 L (39.0-53.0) % Plt Count 133 L 131 L (150-450) k/uL Sodium 134 L (137-145) mmol/L Creatinine 0.57 L (0.66-1.25) mg/dL Glucose 132 H (74-99) mg/dL Calcium 8.3 L (8.4-10.2) mg/dL ALT 20 L (21-72) U/L Alkaline Phosphatase 35 L (38-126) U/L Total Protein 5.8 L (6.3-8.2) g/dL Albumin 3.0 L (3.5-5.0) g/dL Microbiology - Last 24 Hours (Table) 07/18/18 14:50 Blood Culture - Preliminary Blood No Growth after 24 hours Assessment and Plan Plan: Assessment: 1. Postop day #1 status post trochanteric nailing right intertrochanteric femur fracture Plan: Pain control, continue current medication GI and DVT prophylaxis, continue current medication Weight-bear as tolerated with therapy, utilize walker Daily dressing changes Other esthetician and manager medical spa recommendations Discharge planning: Patient will likely need short stay rehab Time with Patient: Less than 30
[2018-07-20] MEDS ORDERED: MORPHINE SULFATE 4 MG/ML SYRINGE IVP ONE (13:35)
--- NOTE | 2018-07-20 13:40 | P.PN ---
Subjective Progress Note Date: 07/20/18 Principal diagnosis: right hip pain patient was seen and examined. No acute events overnight. Underwent surgery yesterday. Patient complains of right hip pain, 10 out of 10 in severity. He has not received any IV pain medications since yesterday. He denies any chest pain, shortness of breath, palpitations, changes in urination or bowel habits. Objective - Vital Signs Vital signs: Vital Signs Temp 98.0 F 07/20/18 07:03 Pulse 84 07/20/18 07:03 Resp 18 07/20/18 07:03 BP 150/71 07/20/18 07:03 Pulse Ox 94 L 07/20/18 07:03 Intake & Output 07/19/18 07/20/18 07/20/18 18:59 06:59 18:59 Intake Total 651 600 Output Total 50 700 Balance 601 -100 Intake: IV 501 600 0.9 600 Intake, IV Titration 150 Amount Lactated Ringers 1,000 ml 150 @ 20 mls/hr IV .Q24H [facility] Rx#:[id number] Output: Urine 700 Uretheral (Ramirez) 700 Estimated Blood Loss 50 Other: Voiding Method Indwelling Catheter Indwelling Catheter Indwelling Catheter - Exam General: [non toxic], [no distress], [appears at stated age] Derm: [warm], [dry] Head: [atraumatic], [normocephalic], [symmetric] Eyes: [EOMI], [no lid lag], [anicteric sclera] Mouth: [no lip lesion], [mucus membranes moist] Cardiovascular: [S1S2 reg], [no murmur], [positive DP pulse bilateral] Lungs: [mild expiratory wheezing bilateral], [no rhonchi, no rales] , [no accessory muscle use] Abdominal: [soft], [ nontender to palpation], [no guarding], [no appreciable organomegaly] Ext: [no gross muscle atrophy], [no edema], [R hip dressings c/d/i], [limited ROM in the R hip due to pain] Neuro: [weakness of right lower extremity] [sensation intact to touch in all 4 extremities] Psych: [Alert], [oriented], [appropriate affect] - Labs CBC & Chem 7: 07/20/18 08:28 07/20/18 08:28 Labs: Abnormal Lab Results - Last 24 Hours (Table) 07/19/18 07/20/18 07/20/18 Range/Units 15:59 08:28 08:28 RBC 3.71 L 3.55 L (4.30-5.90) m/uL Hgb 11.7 L 10.8 L (13.0-17.5) gm/dL Hct 34.4 L 32.4 L (39.0-53.0) % Plt Count 133 L 131 L (150-450) k/uL Sodium 134 L (137-145) mmol/L Creatinine 0.57 L (0.66-1.25) mg/dL Glucose 132 H (74-99) mg/dL Calcium 8.3 L (8.4-10.2) mg/dL ALT 20 L (21-72) U/L Alkaline Phosphatase 35 L (38-126) U/L Total Protein 5.8 L (6.3-8.2) g/dL Albumin 3.0 L (3.5-5.0) g/dL Microbiology - Last 24 Hours (Table) 07/18/18 14:50 Blood Culture - Preliminary Blood No Growth after 24 hours Assessment and Plan Assessment: Assessment and Plan 1. R proximal femoral fracture: Confirmed on XR. Orthopedic Sx on board. Pain control with Oxycodone 15 mg PO BID scheduled and Morphine 4 mg IV Q4H PRN for severe pain. Fall precautions. FU Orthopedic Sx, PT/OT, Vit D 2. Chest pain: Exertional and at rest. Attempting to obtain records from Dr. Huber Escoto. Echo shows EF 60-65%. No history of cardiac cath, stent placement or CABG. Will continue home medication of Imdur 30 mg PO QD, Metoprolol 100 mg PO QD, Ranexa 500 mg PO BID. Nitrostat PRN for pain. FU Cardiology for further workup 3. COPD: Stable. Continue DuoNeb as needed for shortness of breath and wheezing. 4. Hypertension: BP 150/71. Continue Imdur and Metoprolol. Adequate pain control. Monitor vitals, adjust medication as necessary. 5. Hyperlipidemia: Lipitor 10 mg PO QHS. 6. Smoker: Nicotine patch 21 mg TOP QD. 7. DVT/GI Prophylaxis: Pepcid 20 mg PO BID. SCD boots only. Underwent surgery yesterday after being cleared by Cardiology. Will likely need Rehab prior to going home. Likely DC Tuesday or Tuesday as per Ortho. FU Cardiology for further workup.
--- NOTE | 2018-07-20 14:36 | P.PN ---
Subjective Mr. Small is seen and examined sitting up in the chair. Past medical history significant for coronary artery disease with recommended medical therapy per his bean snipper Dr. Ngo. He underwent catheterization 2009 which revealed 40% narrowing mid LAD, 30-40% distal stenosis of circumflex, first OM 30% narrowing, 40-50% narrowing of mid RCA. He also has dyslipidemia, hypertension, GERD, COPD and chronic nicotine dependence. He underwent right intertrochanteric femur nailing without incident and minimal blood loss. He denies symptoms of chest pain, shortness of breath, dizziness or palpitations. He continues to complain of significant discomfort to the right lower extremity. Blood pressure 120/65 heart rate 79. Laboratory data reviewed, hemoglobin 10.8, platelets 131, sodium 134, potassium 4.3, creatinine 0.57. Objective - Vital Signs Vital signs: Vital Signs Temp 98.0 F 07/20/18 07:03 Pulse 79 07/20/18 13:00 Resp 18 07/20/18 13:00 BP 128/65 07/20/18 13:00 Pulse Ox 85 L 07/20/18 13:00 Intake & Output 07/19/18 07/20/18 07/20/18 18:59 06:59 18:59 Intake Total 651 600 Output Total 50 700 Balance 601 -100 Intake: IV 501 600 0.9 600 Intake, IV Titration 150 Amount Lactated Ringers 1,000 ml 150 @ 20 mls/hr IV .Q24H [facility] Rx#:[id number] Output: Urine 700 Uretheral (Ramirez) 700 Estimated Blood Loss 50 Other: Voiding Method Indwelling Catheter Indwelling Catheter Indwelling Catheter - Exam GENERAL: Well-appearing, well-nourished and in no acute distress. NECK: Supple without JVD or thyromegaly. LUNGS: Breath sounds clear to auscultation bilaterally. Respiration equal and unlabored. No wheezes, rales or rhonchi. HEART: Regular rate and rhythm with systolic ejection murmur at the base, no rubs or gallops. S1 and S2 heard. EXTREMITIES: No edema. No clubbing or cyanosis. Peripheral pulses intact. - Labs CBC & Chem 7: 07/20/18 08:28 07/20/18 08:28 Labs: Abnormal Lab Results - Last 24 Hours (Table) 07/19/18 07/20/18 07/20/18 Range/Units 15:59 08:28 08:28 RBC 3.71 L 3.55 L (4.30-5.90) m/uL Hgb 11.7 L 10.8 L (13.0-17.5) gm/dL Hct 34.4 L 32.4 L (39.0-53.0) % Plt Count 133 L 131 L (150-450) k/uL Sodium 134 L (137-145) mmol/L Creatinine 0.57 L (0.66-1.25) mg/dL Glucose 132 H (74-99) mg/dL Calcium 8.3 L (8.4-10.2) mg/dL ALT 20 L (21-72) U/L Alkaline Phosphatase 35 L (38-126) U/L Total Protein 5.8 L (6.3-8.2) g/dL Albumin 3.0 L (3.5-5.0) g/dL Microbiology - Last 24 Hours (Table) 07/18/18 14:50 Blood Culture - Preliminary Blood No Growth after 24 hours Assessment and Plan Assessment: ASSESSMENT Right intertrochanteric fracture s/p fall. POD#1 History of multi-vessel coronary artery disease. Follows with bean snipper Dr. Ngo Hypertension Dyslipidemia Chronic nicotine dependence PLAN Continue current medical regimen. Encouraged deep breathing and increased activity. Smoking cessation recommended. Follow up with Dr. Ngo upon discharge. We will continue to follow as needed, please call with further questions or concerns. Nurse Practitioner note has been reviewed, I agree with a documented findings and plan of care. Patient was seen and examined.
[2018-07-20] MEDS: ATORVASTATIN 10 MG TAB PO SCH (21:20)
[2018-07-21] MEDS: ACETAMINOPHEN TAB 325 MG TAB PO PRN ×2 (03:46→15:26)
[2018-07-21] MEDS: oxyCODONE ER 15 MG TAB.ER.12H PO SCH (05:46)
[2018-07-21] MEDS: PANTOPRAZOLE 40 MG TABLET PO SCH (07:49)
[2018-07-21] MEDS: RIVAROXABAN 10 MG TAB PO SCH (07:49)
[2018-07-21] MEDS: OMEGA ACID ETHYL ESTERS PO SCH (09:01)
[2018-07-21] MEDS: METOPROLOL SUCCINATE (ER) 100 MG TAB.ER.24H PO SCH (09:03)
[2018-07-21] MEDS: NICOTINE 21MG/24HR PATCH TRANSDERM SCH (09:03)
[2018-07-21] MEDS: busPIRone HCl 10 MG TAB PO SCH (09:03)
[2018-07-21] MEDS: GABAPENTIN 300 MG CAP PO SCH ×2 (09:03→15:24)
[2018-07-21] MEDS: RANOLAZINE 500 MG TAB.ER.12H PO SCH (09:03)
[2018-07-21] MEDS: ISOSORBIDE MONONITRATE ER 30 MG TAB.ER.24H PO SCH (09:03)
--- NOTE | 2018-07-21 09:54 | P.PN ---
Subjective Progress Note Date: 07/21/18 Principal diagnosis: Status post trochanteric nailing right intertrochanteric femur fracture Patient seen today resting in his hospital chair, he appears comfortable. His pain is controlled at this time. Denies any chest pain or shortness of breath. Objective - Vital Signs Vital signs: Vital Signs Temp 98.7 F 07/21/18 05:00 Pulse 84 07/21/18 05:00 Resp 16 07/21/18 05:00 BP 165/87 07/21/18 05:00 Pulse Ox 98 07/21/18 05:00 Intake & Output 07/20/18 07/21/18 07/21/18 18:59 06:59 18:59 Intake Total 80 300 Output Total 250 Balance -170 300 Intake: IV 220 0.9 220 Oral 80 80 Output: Urine 250 Other: Voiding Method Indwelling Catheter Indwelling Catheter - Exam Right lower extremity: Martina are all in good position and condition, no obvious drainage. Minimal soft tissue swelling on the lateral aspect of the hip. Distal neurovascular exam is intact of the lower extremity. Logroll maneuver of the hip reproduces minimal discomfort - Labs CBC & Chem 7: 07/20/18 08:28 07/20/18 08:28 Labs: Abnormal Lab Results - Last 24 Hours (Table) 07/20/18 Range/Units 08:28 Vitamin D 25-Hydroxy 16.9 L (30.0-100.0) ng/mL Microbiology - Last 24 Hours (Table) 07/18/18 14:50 Blood Culture - Preliminary Blood No Growth after 48 hours Assessment and Plan Plan: Assessment: 1. Postop day #2 status post trochanteric nailing right intertrochanteric femur fracture Plan: Pain control, we'll discharge on oral medication GI and DVT prophylaxis, discharged on Xarelto 10 mg Weight-bear as tolerated with therapy, utilize walker Daily dressing changes Other medical logistics specialist recommendations Discharge planning: Patient will be discharged to rehab today Time with Patient: Less than 30
[2018-07-21 10:14] LABS: Basophils % (A) 0 %; Eosinophils # (A) 0.2 k/uL (0-0.7); Eosinophils % (A) 3 %; HCT 30.1 % (39.0-53.0); HGB 10.5 gm/dL (13.0-17.5); Lymphocytes # (A) 1.6 k/uL (1.0-4.8); Lymphocytes % (A) 23 %; MCH 31.2 pg (25.0-35.0); MCHC 34.8 g/dL (31.0-37.0); MCV 89.4 fL (80.0-100.0); Mean Platelet Volume 7.1; Monocytes # (A) 0.5 k/uL (0-1.0); Monocytes % (A) 7 %; Neutrophils # (A) 4.6 k/uL (1.3-7.7); Neutrophils % (A) 65 %; Platelet Count 131 k/uL (150-450); RBC 3.37 m/uL (4.30-5.90); RDW 12.5 % (11.5-15.5); WBC 7.1 k/uL (3.8-10.6)
[2018-07-21 12:23] VITALS: BP 143/68; PULSE 66; RESP 18; TEMP 98
--- NOTE | 2018-07-21 12:28 | P.PN ---
Subjective Progress Note Date: 07/21/18 Principal diagnosis: Right hip fracture Patient was seen and examined. No acute events overnight. Objective - Vital Signs Vital signs: Vital Signs Temp 98 F 07/21/18 12:22 Pulse 66 07/21/18 12:22 Resp 18 07/21/18 12:22 BP 143/68 07/21/18 12:22 Pulse Ox 98 07/21/18 12:22 Intake & Output 07/20/18 07/21/18 07/21/18 18:59 06:59 18:59 Intake Total 80 300 Output Total 250 200 Balance -170 300 -200 Intake: IV 220 0.9 220 Oral 80 80 Output: Urine 250 200 Uretheral (Ramirez) 200 Other: Voiding Method Indwelling Catheter Indwelling Catheter Indwelling Catheter - Exam General: [non toxic], [no distress], [appears at stated age] Derm: [warm], [dry] Head: [atraumatic], [normocephalic], [symmetric] Eyes: [EOMI], [no lid lag], [anicteric sclera] Mouth: [no lip lesion], [mucus membranes moist] Cardiovascular: [S1S2 reg], [no murmur], [positive DP pulse bilateral] Lungs: [mild expiratory wheezing bilateral], [no rhonchi, no rales] , [no accessory muscle use] Abdominal: [soft], [ nontender to palpation], [no guarding], [no appreciable organomegaly] Ext: [no gross muscle atrophy], [no edema], [R hip dressings c/d/i], [limited ROM in the R hip due to pain] Neuro: [weakness of right lower extremity] [sensation intact to touch in all 4 extremities] Psych: [Alert], [oriented], [appropriate affect] - Labs CBC & Chem 7: 07/21/18 09:04 07/20/18 08:28 Labs: Abnormal Lab Results - Last 24 Hours (Table) 07/20/18 07/21/18 Range/Units 08:28 09:04 RBC 3.37 L (4.30-5.90) m/uL Hgb 10.5 L (13.0-17.5) gm/dL Hct 30.1 L (39.0-53.0) % Plt Count 131 L (150-450) k/uL Vitamin D 25-Hydroxy 16.9 L (30.0-100.0) ng/mL Microbiology - Last 24 Hours (Table) 07/18/18 14:50 Blood Culture - Preliminary Blood No Growth after 48 hours Assessment and Plan Assessment: Assessment and Plan 1. R proximal femoral fracture: Confirmed on XR. Orthopedic Sx on board. Pain control with Oxycodone 15 mg PO BID scheduled and Morphine 4 mg IV Q4H PRN for severe pain. Fall precautions. Low Vit D, will replace. FU Orthopedic Sx, PT/OT 2. Chest pain: Exertional and at rest. Attempting to obtain records from Dr. Ngo [facility]. Echo shows EF 60-65%. No history of cardiac cath, stent placement or CABG. Will continue home medication of Imdur 30 mg PO QD, Metoprolol 100 mg PO QD, Ranexa 500 mg PO BID. Nitrostat PRN for pain. Cardiology signed off, recommends FU with Dr. Ngo outPT. 3. COPD: Stable. Continue DuoNeb as needed for shortness of breath and wheezing. 4. Hypertension: BP 143/68. Continue Imdur and Metoprolol. Adequate pain control. Monitor vitals, adjust medication as necessary. 5. Hyperlipidemia: Lipitor 10 mg PO QHS. 6. Smoker: Nicotine patch 21 mg TOP QD. 7. DVT/GI Prophylaxis: Pepcid 20 mg PO BID. SCD boots only. Patient cleared for DC to rehab today. Will need FU with Dr. Ngo at [facility] on DC. Will sign off, please contact with any additional questions.
[2018-07-21] MEDS ORDERED: ERGOCALCIFEROL 50,000 UNIT CAP PO SCH (13:00)
--- NOTE | 2018-07-21 13:59 | P.DS ---
Providers Date of admission: 07/18/18 14:43 Expected date of discharge: 07/21/18 Attending physician: George Freed Consults: 07/18/18 14:40 Consult Physician Stat Consulting Provider: Soraya Echols Consult Reason/Comments: Surgical clearance, medical management Do you want consulting provider notified?: Yes 07/18/18 16:58 Consult Physician Urgent Consulting Provider: Mauro Castro Consult Reason/Comments: cardiac clearance femur fracture Do you want consulting provider notified?: Yes Primary care physician: Brodie Banks - Discharge Diagnosis(es) (1) Fracture of proximal end of right femur Current Visit: Yes Status: Acute (2) Exertional chest pain Current Visit: Yes Status: Acute (3) COPD (chronic obstructive pulmonary disease) Current Visit: Yes Status: Acute (4) Hypertension Current Visit: Yes Status: Acute (5) Hyperlipidemia Current Visit: Yes Status: Acute (6) Nicotine dependence Current Visit: Yes Status: Acute Hospital Course: 73-year-old male past medical history of atherosclerotic coronary artery disease, tobacco abuse, and GERD who presented to the emergency department after a fall with hip pain. In the ER he underwent a comprehensive evaluation. On arrival he was found to be satting 83% on room air and had a slight fever of 100.4. Initial laboratory analysis showed slightly elevated glucose at 1:15 was otherwise unremarkable. Chest x-ray showed no acute process. EKG is reviewed by myself reveals normal sinus rhythm at a rate of 83. His x-ray showed a right proximal femur fracture. Dr. Freed team was contacted and requested us to see the patient for medical risk stratification. Patient reported a history of exertional chest pain. He sees Dr. Ngo at [facility]. Cardiology was consulted for cardiac clearance. Echocardiogram was ordered and showed an ejection fraction of 60-65%. Cardiology recommended no further intervention. It was noted that the patient underwent cardiac catheterization in 2009 which revealed a 40% narrowing of the mid LAD, 30-40% distal stenosis of the left circumflex, first OM 30% narrowing, 40-50% narrowing of the mid RCA. Patient was restarted on his home medication of Imdur, Metoprolol and Ranexa. Patient underwent trochanteric nailing of the right intertrochanteric femoral fracture on 07/19/2018. Patient had an uncomplicated postoperative course. Patient was discharged to rehabilitation on 07/21/2018. This discharge took less than 30 minutes. Pertinent Studies: Echocardiogram Hip XR Procedures: Trochanteric nailing of the right intertrochanteric femoral fracture Patient Condition at Discharge: Fair Plan - Discharge Summary Discharge Rx Participant: No New Discharge Prescriptions: New Rivaroxaban [Xarelto] 10 mg PO DAILY #21 tab Acetaminophen Tab [Tylenol] 650 mg PO Q6HR PRN tab PRN Reason: Mild Pain Or Fever > 100.5 Ergocalciferol [Vitamin D2 (DRISDOL)] 50,000 unit PO Q7D cap Ipratropium-Albuterol Nebulize [Duoneb 0.5 mg-3 mg/3 ml Soln] 3 ml INHALATION RT-QID PRN ampul.neb PRN Reason: Shortness Of Breath Or Wheezing oxyCODONE-APAP 10-325MG [Percocet 10-325 mg] 1 tab PO Q4HR PRN 3 Days #18 tab PRN Reason: Pain Control Continue Nitroglycerin Sl Tabs [Nitrostat] 0.4 mg SUBLINGUAL Q5M PRN PRN Reason: Angina busPIRone HCl [Buspar] 10 mg PO BID Simvastatin [Zocor] 10 mg PO HS Ranolazine [Ranexa] 500 mg PO BID Esomeprazole Magnesium [NexIUM] 40 mg PO DAILY Aspirin EC [Ecotrin Low Dose] 81 mg PO DAILY [place]-3 Acid Ethyl Esters [Lovaza] 2 gm PO BID Metoclopramide HCl [Reglan] 2.5 mg PO DAILY Metoprolol Succinate [Toprol Xl] 100 mg PO DAILY Isosorbide Mononitrate ER [Imdur] 30 mg PO DAILY Gabapentin [Neurontin] 300 mg PO TID Discharge Medication List Aspirin EC [Ecotrin Low Dose] 81 mg PO DAILY 07/18/18 [History] Esomeprazole Magnesium [NexIUM] 40 mg PO DAILY 07/18/18 [History] Gabapentin [Neurontin] 300 mg PO TID 07/18/18 [History] Isosorbide Mononitrate ER [Imdur] 30 mg PO DAILY 07/18/18 [History] Metoclopramide HCl [Reglan] 2.5 mg PO DAILY 07/18/18 [History] Metoprolol Succinate [Toprol Xl] 100 mg PO DAILY 07/18/18 [History] Nitroglycerin Sl Tabs [Nitrostat] 0.4 mg SUBLINGUAL Q5M PRN 07/18/18 [History] [place]-3 Acid Ethyl Esters [Lovaza] 2 gm PO BID 07/18/18 [History] Ranolazine [Ranexa] 500 mg PO BID 07/18/18 [History] Simvastatin [Zocor] 10 mg PO HS 07/18/18 [History] busPIRone HCl [Buspar] 10 mg PO BID 07/18/18 [History] Acetaminophen Tab [Tylenol] 650 mg PO Q6HR PRN tab 07/21/18 [Rx] Ergocalciferol [Vitamin D2 (DRISDOL)] 50,000 unit PO Q7D cap 07/21/18 [Rx] Ipratropium-Albuterol Nebulize [Duoneb 0.5 mg-3 mg/3 ml Soln] 3 ml INHALATION RT -QID PRN ampul.neb 07/21/18 [Rx] Rivaroxaban [Xarelto] 10 mg PO DAILY #21 tab 07/21/18 [Rx] oxyCODONE-APAP 10-325MG [Percocet 10-325 mg] 1 tab PO Q4HR PRN 3 Days #18 tab [Rx] Follow up Appointment(s)/Referral(s): Conrad Patino PAC [PHYSICIAN SSAS DEVELOPER] - 2 Weeks Brodie Banks DO [Primary Care Provider] - 1-2 days Emile Ngo DO [REFERRING] - 1 Week Activity/Diet/Wound Care/Special Instructions: Orthopedic Discharge Instructions: 1. Wound care and infection precautions, keep incision dry and covered while showering, no lotions, creams, moisturizers. No soaking, pools, hot tubs. Do not scrub over incision. 2. Weight-bear as tolerated with walker / cane until follow-up. 3. Ice and elevate when necessary. Do not exceed 20 minutes per hour with ice pack. 4. Utilize compression sleeve until seen at first follow up appointment. 5. Pain meds and anticoagulants per prescription. 6. Pain medication has potential to cause constipation. Increase oral fluid and fiber intake. Contact primary care provider if you have not had a bowel movement within 48 hours after discharge. 7. No anti-inflammatory medication until discussed at first post operative visit, this including Motrin, Aleve, Mobic, Diclofenac. 8. Follow up in office at 2 weeks postop with Choco Patino PA-C 9. Follow up with your primary care doctor 7-10 days after discharge. 10. Contact [facility] with any questions, . PLEASE REMOVE DELILAH ON 08/02/2018 Discharge Disposition: TRANSFER TO SNF/ECF
== END 2018-07-21 16:23 | DRG 482 ==
LOC: EC 13:44 → 3SUR 14:43 → 5MS5E 15:47
PROVIDERS: ADMIT Orthopaedic Surgery; ATTEND Orthopaedic Surgery
PROC: 0QS6XZZ Reposition Right Upper Femur, External Approach (ICD-10-PCS; principal; 2018-07-18)
PROC: 0QH606Z Insertion of Intramedullary Internal Fixation Device into Right Upper Femur, Open Approach (ICD-10-PCS; 2018-07-18)
DX: S72.141A Displaced intertrochanteric fracture of right femur, initial encounter for closed fracture (principal); W10.1XXA Fall (on)(from) sidewalk curb, initial encounter; E78.5 Hyperlipidemia, unspecified; F17.200 Nicotine dependence, unspecified, uncomplicated; I10 Essential (primary) hypertension; I25.10 Atherosclerotic heart disease of native coronary artery without angina pectoris; I25.2 Old myocardial infarction; J44.9 Chronic obstructive pulmonary disease, unspecified; K21.9 Gastro-esophageal reflux disease without esophagitis; Z79.82 Long term (current) use of aspirin; Z79.899 Other long term (current) drug therapy; Z82.49 Family history of ischemic heart disease and other diseases of the circulatory system; Z79.891 Long term (current) use of opiate analgesic; M54.9 Dorsalgia, unspecified; G89.29 Other chronic pain
CPT/HCPCS: 71045; 73502; 80048; 80053; 81003; 82306; 85025; 85027; 85610; 85730; 87040; 93005; 93306; 94640; 96374; 96375; 99285

== ENCOUNTER → 2018-09-18 | Outpatient (CLI) | payer MEDICARE, BC ==
[2018-09-18 16:56] LABS: Basophils % (A) 0 %; Eosinophils # (A) 0.2 k/uL (0-0.7); Eosinophils % (A) 2 %; HCT 41.2 % (39.0-53.0); Lymphocytes # (A) 2.5 k/uL (1.0-4.8); Lymphocytes % (A) 34 %; MCH 28.8 pg (25.0-35.0); MCHC 31.6 g/dL (31.0-37.0); MCV 91.2 fL (80.0-100.0); Mean Platelet Volume 6.6; Monocytes # (A) 0.5 k/uL (0-1.0); Monocytes % (A) 7 %; Neutrophils % (A) 54 %; Platelet Count 223 k/uL (150-450); RBC 4.52 m/uL (4.30-5.90); RDW 12.9 % (11.5-15.5); WBC 7.5 k/uL (3.8-10.6)
[2018-09-18 17:00] LABS: Potassium 5.5 mmol/L (3.5-5.1)
[2018-09-18 17:04] LABS: INR 0.9 (<1.2); Prothrombin Time 9.8 sec (9.0-12.0)
== END ==
LOC: LABPAT 16:03
PROVIDERS: ATTEND Orthopaedic Surgery
DX: Z01.812 Encounter for preprocedural laboratory examination (principal); T84.89XD Other specified complication of internal orthopedic prosthetic devices, implants and grafts, subsequent encounter; Z79.01 Long term (current) use of anticoagulants
CPT/HCPCS: 36415; 80051; 85025; 85610

== ENCOUNTER 2018-09-26 09:44 | Inpatient (IN) | payer MEDICARE, BC ==
[2018-09-20 15:13] VITALS: BMI 25.0
--- NOTE | 2018-09-25 09:25 | HP ---
HISTORY AND PHYSICAL CHIEF COMPLAINT: Right hip pain. HISTORY OF PRESENT ILLNESS: The patient is a 73-year-old male who presents after undergoing trochanteric nailing for right intertrochanteric femur fracture on 07/19/2018 with some increasing thigh pain with weightbearing activities. He does use a walker. He takes Percocet and OxyContin for back pain. He denies any recent injury after his surgery. PAST MEDICAL HISTORY: Significant for coronary artery disease, COPD, reflux, osteoarthritis, hypertension, hyperlipidemia, and probable osteoporosis. PAST SURGICAL HISTORY: Significant for trochanteric nailing of a right intertrochanteric femur fracture. CURRENT MEDICATIONS: 1. Aspirin. 2. BuSpar. 3. Gabapentin. 4. Imdur. 5. Nexium. 6. Nitrostat. 7. OxyContin. 8. Percocet. 9. Reglan. 10.Simvastatin. 11.Toprol. ALLERGIES: He denies drug allergies. FAMILY HISTORY: Significant for heart disease. SOCIAL HISTORY: Significant for current tobacco use. REVIEW OF SYSTEMS: Sixteen-point review of systems otherwise reviewed and is noncontributory. PHYSICAL EXAMINATION: On examination, the patient is approximately 5 feet 7 inches, 155 pounds of mesomorphic habitus. HEENT exam is nonfocal. Neck is supple. Passive motion of the right hip flexion 80 degrees, external rotation with the hip flexed 10 degrees with mild pain. Homans is negative right lower extremity. His distal neurovascular exam appears intact in the right lower extremity. AP and lateral views of the right hip obtained in the office show previous trochanteric intramedullary nailing of a right intertrochanteric femur fracture with questionable head perforation of the superior compression screw. IMPRESSION: 1. Status post trochanteric nailing, right intertrochanteric femur fracture. 2. Irritating hardware, right hip. RECOMMENDATIONS: I talked to the patient at length regarding his condition and treatment options. At this point, we will plan to proceed with revision and fixation of the right trochanteric nailing. We will potentially perform that as an outpatient procedure. Risks and benefits were discussed at length in layman's terms. MMODL / IJN: [id number] /
[~2018-09-26 09:44] MED LIST: ACETAMINOPHEN TAB 500 MG TAB PO ONE; DEXAMETHASONE SOD PHOSPHATE 10 MG/ML 1 ML VIAL IV ONE; LIDOCAINE 1% 20 ML VIAL (10MG/ML) FOR IV START INTRADERMA PRN; MELOXICAM 7.5 MG TAB PO ONE; MIDAZOLAM 2 MG/2 ML VIAL IV PRN; ONDANSETRON 4 MG/2 ML VIAL IVP ONE; SCOPOLAMINE 1.5MG/72HR PATCH TRANSDERM ONE; TRANEXAMIC ACID 1,000 MG in SODIUM CHLORIDE 0.9% 50 ML IVPB ONE; ceFAZolin IN SWFI 2 GM/20 ML SYRINGE IVP ONE
[2018-09-26] MEDS: LACTATED RINGERS 1,000 ML IV SCH (12:34)
[2018-09-26] MEDS ORDERED: CHLOROPROCAINE 3% 30 MG/ML 20 ML VIAL ONE (13:00)
[2018-09-26] MEDS ORDERED: PROPOFOL 10 MG/ML 20 ML VIAL IV ONE (13:00)
[2018-09-26] MEDS ORDERED: fentaNYL (PF) 50 MCG/ML 2 ML AMP ONE (13:00)
[2018-09-26] MEDS ORDERED: MIDAZOLAM 2 MG/2 ML VIAL ONE (13:00)
[2018-09-26] MEDS ORDERED: ePHEDrine SULFATE/0.9% NACL/PF 50 MG/5 ML SYRINGE IV ONE (13:00)
[2018-09-26] MEDS ORDERED: ceFAZolin 1,000 MG in SODIUM CHLORIDE 0.9% 1,000 ML IRRIGATION ONE (13:30)
[2018-09-26] MEDS ORDERED: ONDANSETRON 4 MG/2 ML VIAL IVP PRN (14:20)
[2018-09-26] MEDS ORDERED: HYDROmorphone 0.5 MG/0.5 ML SYRINGE IVP PRN (14:20)
[2018-09-26] MEDS ORDERED: MAGNESIUM HYDROXIDE 2,400 MG/10 ML CUP PO PRN (14:20)
[2018-09-26] MEDS ORDERED: HYDROmorphone 1 MG/ML 1 ML SYRINGE IVP PRN (14:20)
[2018-09-26] MEDS ORDERED: NALOXONE 0.4 MG/ML 1 ML VIAL IV PRN (14:20)
--- NOTE | 2018-09-26 14:22 | P.OP ---
Date of Procedure: 09/26/18 Preoperative Diagnosis: Irritating hardware right hip Postoperative Diagnosis: Same Procedure(s) Performed: Revision fixation right intertrochanteric femur fracture Implants: [employer] 80 mm lag screw with corresponding compression screw Anesthesia: spinal Surgeon: George Freed Gas Examiner #1: Conrad Patino Estimated Blood Loss (ml): 50 Pathology: none sent Condition: stable Disposition: PACU Indications for Procedure: The patient's a 73-year-old male who presents with irritation of his right hip secondary to hardware perforation of the femoral head. The patient undergone intertrochanteric femur fracture fixation with a trochanteric nail. On his last follow-up, there was noted to be some perforation of the femoral head with the superior lag screw. A discussion of the risks and benefits of revision of the hardware was made with the patient. He opted to proceed. Operative risks to include infection, neurovascular injury, development of blood clots, possible development nonunion/malunion and need for subsequent procedures was discussed. Informed consent was obtained. Operative Findings: As below Description of Procedure: The patient was brought to the operating room, and after induction of spinal anesthesia was supine on the fracture table. The right lower extremity was prepped and draped in normal fashion. A 4 cm incision was made along the lateral proximal thigh. Skin was incised sharply. Subcu tissues were divided sharply. The fascia junie split in line with the skin incision. Blunt dissection was made down to the palpable hardware. The lag and compression screws were removed. A guidewire was then placed. An 80 mm lag screw was inserted along with the corresponding compression screw. Final fluoroscopic view showed adequate placement of the implant with no perforation of the femoral head. This was verified on the AP and lateral views with fluoroscopy. The wound was irrigated normal saline. The fascia junie was closed with running 0 Vicryl suture. The subcutaneous tissues reapproximated interrupted 2-0 Vicryl sutures. The skin was reprepped with esdras. A sterile dressing was applied. The patient was awoken from sedation and transferred to recovery room in good condition. Blood loss was estimated at 50 mL. No complications were incurred. Sponge and needle counts were correct in the case.
[2018-09-26 14:33] VITALS: RESP 16
--- NOTE | 2018-09-26 14:33 | XR ---
EXAMINATION TYPE: XR Hip Limited RT DATE OF EXAM: 09/26/2018 COMPARISON: NONE HISTORY: Postop TECHNIQUE: One view submitted. FINDINGS: There is a prosthetic hip in near anatomic alignment. There is soft tissue edema and emphysema. IMPRESSION: 1. Postoperative change. Appears in near-anatomic alignment.
--- NOTE | 2018-09-26 14:34 | FL ---
EXAMINATION TYPE: FL guidance operating room DATE OF EXAM: 09/26/2018 HISTORY: Flouroscopy time 33 seconds of fluoroscopy provided. IMPRESSION: 1. Fluoroscopy time.
[2018-09-26] MEDS: HYDROmorphone 0.5 MG/0.5 ML SYRINGE IVP PRN ×2 (15:39→15:47)
[2018-09-26] MEDS: oxyCODONE-APAP 10-325MG 1 EACH TAB PO PRN (18:03)
[2018-09-26] MEDS ORDERED: NITROGLYCERIN SL TABS 0.4 MG TAB SUBLINGUAL PRN (18:21)
--- NOTE | 2018-09-26 18:26 | P.CONS ---
History of Present Illness - Reason for Consult Consult date: 09/26/18 hypertension Requesting physician: George Freed - Chief Complaint right hip pain - History of Present Illness Patient is a 73-year-old male past medical history of hypertension, coronary artery disease status post myocardial infarction, and dyslipidemia who presented to the hospital for elective revision of his right intertrochanteric nailing. He underwent surgery with Dr. Freed on 09/26/18. Patient seen and examined at bedside. His pain is currently well controlled. No nausea, vomiting, or dizziness. Patient states that since his initial surgery in July 2018 he has suffered from chronic right-sided pain, irritation, and difficulty ambulating. He now has sees a cane. He reports that Dr. Freed wanted to do a revision of his screw and that's why he presented to the hospital. He has otherwise been in his normal state of health. He denies any recent cough, cold, fever, flu, nausea, vomiting, diarrhea, constipation, unusual shortness of breath, or unusual chest discomfort. = Review of Systems Pertinent positives and negatives as discussed in HPI, a complete review of systems was performed and all other systems are negative. Past Medical History Past Medical History: Coronary Artery Disease (CAD), COPD, GERD/Reflux, Hyperlipidemia, Hypertension, Memory Impairment, Myocardial Infarction (NH), Osteoarthritis (OA) Additional Past Medical History / Comment(s): per pt's daughter ,pt had slight heart attack in his 40's. at age 17 had back injuries from farming accident, some mild memory problems. chronic back pain. Last Myocardial Infarction Date:: unk History of Any Multi-Drug Resistant Organisms: None Reported Past Surgical History: Orthopedic Surgery Additional Past Surgical History / Comment(s): surgery on head from farm injury patient states when he was a kid. cortison inj (back). Right IT nailing for femur fracture. Past Anesthesia/Blood Transfusion Reactions: No Reported Reaction Past Psychological History: No Psychological Hx Reported Smoking Status: Current every day smoker Past Alcohol Use History: None Reported Additional Past Alcohol Use History / Comment(s): started smoking at ge 14, smokes 1ppd Past Drug Use History: None Reported Additional History: lives alone in own home, no home care services, uses a walker, no nebulizer - Past Family History Father History Unknown: Yes Additional Family Medical History / Comment(s): never knew his dad Mother Family Medical History: Coronary Artery Disease (CAD) Additional Family Medical History / Comment(s): during open heart in her late 50s Medications and Allergies Home Medications Medication Instructions Recorded Confirmed Type Aspirin EC [Ecotrin Low Dose] 81 mg PO DAILY 07/18/18 09/20/18 History Esomeprazole Magnesium [NexIUM] 40 mg PO DAILY 07/18/18 09/20/18 History Gabapentin [Neurontin] 300 mg PO TID 07/18/18 09/20/18 History Isosorbide Mononitrate ER [Imdur] 30 mg PO QAM 07/18/18 09/20/18 History Metoclopramide HCl [Reglan] 2.5 mg PO BID 07/18/18 09/20/18 History Metoprolol Succinate [Toprol Xl] 100 mg PO QAM 07/18/18 09/20/18 History Nitroglycerin Sl Tabs [Nitrostat] 0.4 mg SUBLINGUAL Q5M PRN 07/18/18 09/26/18 History [place]-3 Acid Ethyl Esters [Lovaza] 2 gm PO BID 07/18/18 09/20/18 History Ranolazine [Ranexa] 500 mg PO BID 07/18/18 09/20/18 History Simvastatin [Zocor] 10 mg PO QAM 07/18/18 09/20/18 History busPIRone HCl [Buspar] 10 mg PO BID 07/18/18 09/20/18 History oxyCODONE-APAP 10-325MG [Percocet 1 tab PO TID 09/20/18 09/20/18 History 10-325 mg] Allergies Allergy/AdvReac Type Severity Reaction Status Date / Time No Known Allergies Allergy Verified 09/26/18 18:13 Physical Exam Osteopathic Statement: *. No significant issues noted on an osteopathic structural exam other than those noted in the History and Physical/Consult. Vitals: Vital Signs Temp Pulse Pulse Pulse Resp BP BP 09/26/18 17:40 97.6 F 75 16 162/77 09/26/18 17:00 68 16 122/67 09/26/18 16:30 69 16 133/65 09/26/18 16:15 70 16 132/73 09/26/18 16:01 70 16 139/75 12/18/18 15:45 74 16 169/81 12/18/18 15:30 16 139/71 09/26/18 15:15 64 16 119/62 09/26/18 15:00 64 16 132/69 09/26/18 14:45 68 16 112/63 09/26/18 14:30 64 16 110/60 09/26/18 14:17 97.5 F L 68 18 104/57 09/26/18 12:20 97.3 F L 74 16 143/69 Pulse Ox 09/26/18 17:40 92 L 09/26/18 17:00 98 09/26/18 16:30 96 09/26/18 16:15 96 09/26/18 16:01 98 09/26/18 15:45 98 09/26/18 15:30 97 09/26/18 15:15 97 09/26/18 15:00 99 09/26/18 14:45 96 09/26/18 14:30 99 09/26/18 14:17 100 09/26/18 12:20 94 L Intake and Output 09/26/18 09/26/18 09/26/18 06:59 14:59 22:59 Intake Total 1001 50 Output Total 50 Balance 951 50 Intake: IV 1001 50 Output: Estimated Blood Loss 50 Other: Weight 74.843 kg General: non toxic, no distress, appears at stated age, normal weight Derm: no unusual rashes/lesions no unusual ecchymoses, warm, dry Head: atraumatic, normocephalic, symmetric Eyes: EOMI, no lid lag, anicteric sclera, pupils equal round reactive to light ENT: Nose and ears atraumatic, no thrush, no pharyngeal erythema Neck: No thyromegaly, no cervical lymphadenopathy, trachea midline, supple Mouth: no lip lesion, mucus membranes moist Cardiovascular: S1S2 reg, no murmur, positive posterior tibial pulse bilateral, no edema, capillary refill less than 2 seconds Lungs: CTA bilateral, no rhonchi, no rales , no accessory muscle use Abdominal: soft, nontender to palpation, no guarding, no appreciable organomegaly, normal bowel sounds Ext: no gross muscle atrophy, muscle strength 5 out of 5 in upper extremities grossly, no contractures, Neuro: CN II-XI grossly intact, light touch intact all 4 extremities, finger to nose within normal limits, Psych: Alert, oriented, appropriate affect Results CBC & Chem 7: 09/26/18 12:36 Assessment and Plan Assessment: Patient is a 73 yo CM here with revision of right intertrochanteric fracture fixation Hypertension - resume home metoprolol with parameters CAD - resume home imdur and ranexa - hold ASA until okay with ortho HLD -Lovaza - statin Chronic back pain - continue percocet DVT prophylaxis: deana Thank you for allowing us to participate in the care of this patient. Do not hesitate to contact us with questions. Someone can be reached from the [facility] hospitalist group at all hours of the day at [phone].
[2018-09-26 18:55] LABS: Basophils % (A) 0 %; Eosinophils % (A) 1 %; HCT 38.7 % (39.0-53.0); HGB 12.5 gm/dL (13.0-17.5); Lymphocytes # (A) 0.9 k/uL (1.0-4.8); Lymphocytes % (A) 17 %; MCH 29.5 pg (25.0-35.0); MCHC 32.2 g/dL (31.0-37.0); MCV 91.7 fL (80.0-100.0); Mean Platelet Volume 6.7; Monocytes # (A) 0.1 k/uL (0-1.0); Monocytes % (A) 2 %; Neutrophils # (A) 4.3 k/uL (1.3-7.7); Neutrophils % (A) 79 %; Platelet Count 183 k/uL (150-450); RBC 4.22 m/uL (4.30-5.90); RDW 12.9 % (11.5-15.5); WBC 5.4 k/uL (3.8-10.6)
[2018-09-26] MEDS ORDERED: SENNOSIDES-DOCUSATE SODIUM 1 EACH TAB PO SCH (21:00)
[2018-09-26] MEDS: GABAPENTIN 300 MG CAP PO SCH (21:12)
[2018-09-26] MEDS: ceFAZolin IN SWFI 2 GM/20 ML SYRINGE IVP SCH (21:13)
[2018-09-26] MEDS: RANOLAZINE 500 MG TAB.ER.12H PO SCH (21:13)
[2018-09-26] MEDS: busPIRone HCl 10 MG TAB PO SCH (21:13)
[2018-09-26] MEDS: Omega-3 Acid Ethyl Esters [Lovaza] 2 GM PO SCH (21:13)
[2018-09-26] MEDS: METOCLOPRAMIDE 5 MG TAB PO SCH (21:13)
[2018-09-27] MEDS: oxyCODONE-APAP 10-325MG 1 EACH TAB PO PRN ×2 (04:03→09:59)
[2018-09-27] MEDS: ceFAZolin IN SWFI 2 GM/20 ML SYRINGE IVP SCH (04:03)
[2018-09-27] MEDS: LACTATED RINGERS 1,000 ML IV SCH (06:13)
[2018-09-27] MEDS ORDERED: PANTOPRAZOLE 40 MG TABLET PO SCH (07:30)
[2018-09-27] MEDS: RANOLAZINE 500 MG TAB.ER.12H PO SCH (08:45)
[2018-09-27] MEDS: METOCLOPRAMIDE 5 MG TAB PO SCH (08:46)
[2018-09-27] MEDS: GABAPENTIN 300 MG CAP PO SCH (08:47)
[2018-09-27] MEDS: busPIRone HCl 10 MG TAB PO SCH (08:47)
[2018-09-27] MEDS: Omega-3 Acid Ethyl Esters [Lovaza] 2 GM PO SCH (08:50)
[2018-09-27] MEDS ORDERED: METOPROLOL SUCCINATE (ER) 100 MG TAB.ER.24H PO SCH (09:00)
[2018-09-27] MEDS ORDERED: ENOXAPARIN 40 MG/0.4 ML SYRINGE SQ SCH (09:00)
[2018-09-27] MEDS ORDERED: ISOSORBIDE MONONITRATE ER 30 MG TAB.ER.24H PO SCH (09:00)
[2018-09-27] MEDS ORDERED: ATORVASTATIN 10 MG TAB PO SCH (09:00)
--- NOTE | 2018-09-27 11:50 | P.PN ---
Subjective Progress Note Date: 09/27/18 Principal diagnosis: Status post revision fixation right intertrochanteric femur fracture Patient seen today resting in his hospital bed, he appears comfortable. His pain is well-controlled. He denies any acute chest pain or shortness of breath Objective - Vital Signs Vital signs: Vital Signs Temp 97.5 F L 09/26/18 19:13 Pulse 70 09/26/18 19:13 Resp 16 09/27/18 00:15 BP 126/62 09/26/18 19:13 Pulse Ox 90 L 09/26/18 19:13 Intake & Output 09/26/18 09/27/18 09/27/18 18:59 06:59 18:59 Intake Total 1051 1160 0 Output Total 50 650 Balance 1001 510 0 Weight 74.843 kg Intake: IV 1051 Intake, IV Titration 80 Amount Lactated Ringers 1,000 ml 80 @ 40 mls/hr IV .Q24H [facility] Rx#:[id number] Oral 1080 0 Output: Urine 650 Estimated Blood Loss 50 Other: Voiding Method Urinal # Voids 1 - Exam Right lower extremity: Incision is clean, dry, and intact. [place] are in good position. There is minimal soft tissue swelling and ecchymosis surrounding the medial and lateral aspects of the incision. Calf is soft, no tenderness with palpation. Plantar flexion, dorsiflexion, EHL, FHL are intact. Sensory exam to light touch throughout the extremity is intact, dorsal pedis pulses 2+. - Labs CBC & Chem 7: 09/26/18 18:13 09/26/18 12:36 Labs: Abnormal Lab Results - Last 24 Hours (Table) 09/26/18 Range/Units 18:13 RBC 4.22 L (4.30-5.90) m/uL Hgb 12.5 L (13.0-17.5) gm/dL Hct 38.7 L (39.0-53.0) % Lymphocytes # 0.9 L (1.0-4.8) k/uL Assessment and Plan Plan: Assessment: Postoperative day 1 status post revision fixation right intertrochanteric femur fracture Plan: Pain control, patient takes oxycodone chronically, resume home medication after discharge GI and DVT prophylaxis, he will resume aspirin 81 mg twice a day after discharge Aquacell dressing to be applied before discharge Wound care instructions were discussed Weight-bear as tolerated with walker Medical recommendations Discharge planning: Discharge home today Time with Patient: Less than 30
--- NOTE | 2018-09-27 11:54 | P.DS ---
Providers Date of admission: 09/26/18 11:44 Expected date of discharge: 09/27/18 Attending physician: George Freed Consults: 09/26/18 14:20 Consult Physician Routine Consulting Provider: Soraya Echols Consult Reason/Comments: medical management Do you want consulting provider notified?: Yes [facility] care physician: [facility] Course: Date of admission: 09/26/2018 Date of discharge: 09/27/2018 Admission diagnosis: Status post revision fixation right intertrochanteric femur fracture Discharge diagnosis: Same Attending physician: Dr. Freed Surgical procedures: Revision fixation right intertrochanteric femur fracture Brief history: Patient is a 73-year-old male with a history of a previous right intertrochanteric femur fracture that was fixed back in July 2018. Over the last month or so patient has noted irritation from the hardware involving the right hip. Patient was scheduled for a revision fixation of the right intertrochanteric femur fracture on 09/26/[address] Freed. Hospital course: Details of patient's surgery can be found in operative report. Patient tolerated the procedure well and was subsequently transported to orthopedic floor. Patient's orthopeidc and medical care was provided daily. Patient had daily laboratory tests performed for evaluation of overall blood counts. Patient had daily physical therapy to include strengthening range of motion as well as education with walker ambulation. Patient was treated with Lovenox for their postoperative DVT prophylaxis during their inpatient stay. Patient was noted to have a relatively uneventful postoperative course. Patient reported satisfactory pain control with oral pain medications by postoperative day 0. Patient showed satisfactory progress with physical therapy. Patient moved steadily through the program and had no difficulty meeting the goals by postoperative day 1. Given patient's otherwise satisfactory course and having met physical therapy goals, plan is to discharge patient home on postoperative day 1. Discharge condition/disposition: Patient will be discharged home in stable condition. Discharge medications: Instructions are given on resumption of patient's normal daily medications per primary care recommendation, in addition patient will be prescribed no new medications. Discharge instructions: 1. Wound care and infection precautions, keep incision dry and covered while showering, no lotions, creams, moisturizers. No soaking, tubs, pools, hottubs. Do not scrub over the incision. 2. Weight-bear as tolerated with walker / cane until follow-up. 3. Ice and elevate when necessary. Do not exceed 20 minutes per hour with ice pack. 4. Utilize compression sleeve until seen at first follow up appointment. 5. Follow up in office at 2 weeks postop with Choco Patino PA-C 6. Follow up with your primary care doctor 7-10 days after discharge. 7. Contact [facility] with any questions, . Procedures: Revision fixation right intertrochanteric femur fracture Patient Condition at Discharge: Good Plan - Discharge Summary Discharge Rx Participant: Yes New Discharge Prescriptions: No Action Nitroglycerin Sl Tabs [Nitrostat] 0.4 mg SUBLINGUAL Q5M PRN PRN Reason: Angina busPIRone HCl [Buspar] 10 mg PO BID Simvastatin [Zocor] 10 mg PO QAM Ranolazine [Ranexa] 500 mg PO BID Esomeprazole Magnesium [NexIUM] 40 mg PO DAILY Aspirin EC [Ecotrin Low Dose] 81 mg PO DAILY [place]-3 Acid Ethyl Esters [Lovaza] 2 gm PO BID Metoclopramide HCl [Reglan] 2.5 mg PO BID Metoprolol Succinate [Toprol Xl] 100 mg PO QAM Isosorbide Mononitrate ER [Imdur] 30 mg PO QAM Gabapentin [Neurontin] 300 mg PO TID oxyCODONE-APAP 10-325MG [Percocet 10-325 mg] 1 tab PO TID Discharge Medication List Aspirin EC [Ecotrin Low Dose] 81 mg PO DAILY 07/18/18 [History] Esomeprazole Magnesium [NexIUM] 40 mg PO DAILY 07/18/18 [History] Gabapentin [Neurontin] 300 mg PO TID 07/18/18 [History] Isosorbide Mononitrate ER [Imdur] 30 mg PO QAM 07/18/18 [History] Metoclopramide HCl [Reglan] 2.5 mg PO BID 07/18/18 [History] Metoprolol Succinate [Toprol Xl] 100 mg PO QAM 07/18/18 [History] Nitroglycerin Sl Tabs [Nitrostat] 0.4 mg SUBLINGUAL Q5M PRN 07/18/18 [History] [place]-3 Acid Ethyl Esters [Lovaza] 2 gm PO BID 07/18/18 [History] Ranolazine [Ranexa] 500 mg PO BID 07/18/18 [History] Simvastatin [Zocor] 10 mg PO QAM 07/18/18 [History] busPIRone HCl [Buspar] 10 mg PO BID 07/18/18 [History] oxyCODONE-APAP 10-325MG [Percocet 10-325 mg] 1 tab PO TID 09/20/18 [History] Follow up Appointment(s)/Referral(s): [facility], [NON-STAFF] - George Freed MD [STAFF PHYSICIAN] - 2 Weeks Activity/Diet/Wound Care/Special Instructions: Take dressing off on 10/04/18. You may shower with dressing on. Orthopedic Discharge Instructions: 1. Wound care and infection precautions, keep incision dry and covered while showering, no lotions, creams, moisturizers. No soaking, pools, hot tubs. Do not scrub over incision. 2. Weight-bear as tolerated with walker / cane until follow-up. 3. Ice and elevate when necessary. Do not exceed 20 minutes per hour with ice pack. 4. Utilize compression sleeve until seen at first follow up appointment. 5. Follow up in office at 2 weeks postop with Choco Patino PA-C 6. Follow up with your primary care doctor 7-10 days after discharge. 7. Contact [facility] with any questions, . Discharge Disposition: HOME SELF-CARE
--- NOTE | 2018-09-27 13:22 | P.PN ---
Subjective Progress Note Date: 09/27/18 (delayed charting patient seen at 0730) Principal diagnosis: right hip pain Patient is a 73-year-old male past medical history of hypertension, coronary artery disease status post myocardial infarction, and dyslipidemia who presented to the hospital for elective revision of his right intertrochanteric nailing. He underwent surgery with Dr. Freed on 09/26/18. Patient seen and examined at bedside. Complains of not being able to sleep last night. Pain is still present right hip by them prior to surgery. Has not been out of bed. No nausea, vomiting, or chest pain. Anxious and wants to go home. Objective - Vital Signs Vital signs: Vital Signs Temp 97.5 F L 09/26/18 19:13 Pulse 70 09/26/18 19:13 Resp 16 09/27/18 00:15 BP 126/62 09/26/18 19:13 Pulse Ox 90 L 09/26/18 19:13 Intake & Output 09/26/18 09/27/18 09/27/18 18:59 06:59 18:59 Intake Total 1051 1160 0 Output Total 50 650 Balance 1001 510 0 Weight 74.843 kg Intake: IV 1051 Intake, IV Titration 80 Amount Lactated Ringers 1,000 ml 80 @ 40 mls/hr IV .Q24H [facility] Rx#:[id number] Oral 1080 0 Output: Urine 650 Estimated Blood Loss 50 Other: Voiding Method Urinal # Voids 1 - Exam General: non toxic, no distress, appears at stated age Derm: warm, dry Cardiovascular: S1S2 reg, no murmur, positive posterior tibial pulse bilateral, Lungs: CTA bilateral, no rhonchi, no rales , no accessory muscle use Abdominal: soft, nontender to palpation, no guarding, no appreciable organomegaly Ext: no gross muscle atrophy, no edema, no contractures - Labs CBC & Chem 7: 09/26/18 18:13 09/26/18 12:36 Labs: Abnormal Lab Results - Last 24 Hours (Table) 09/26/18 Range/Units 18:13 RBC 4.22 L (4.30-5.90) m/uL Hgb 12.5 L (13.0-17.5) gm/dL Hct 38.7 L (39.0-53.0) % Lymphocytes # 0.9 L (1.0-4.8) k/uL Assessment and Plan Assessment: Patient is a 73 yo CM here with revision of right intertrochanteric fracture fixation Hypertension - resume home metoprolol with parameters CAD - resume home imdur and ranexa - hold ASA until okay with ortho HLD -Lovaza - statin Chronic back pain - continue percocet COPD GERD HLD HTN Medically stable for discharge at the discretion of the primary team. DVT prophylaxis: loveno Thank you for allowing us to participate in the care of this patient. Do not hesitate to contact us with questions. Someone can be reached from the [facility] hospitalist group at all hours of the day at [phone].
[2018-09-27 15:10] VITALS: BP 156/67; PULSE 78; TEMP 97.4
== END 2018-09-27 13:22 | disposition home or self-care (01) | DRG 499 ==
LOC: 2ORMAIN 11:44 → 4SSUR 17:31
PROVIDERS: ADMIT Orthopaedic Surgery; ATTEND Orthopaedic Surgery
PROC: 0QW604Z Revision of Internal Fixation Device in Right Upper Femur, Open Approach (ICD-10-PCS; principal; 2018-09-26 13:25)
DX: T84.194A Other mechanical complication of internal fixation device of right femur, initial encounter (principal); E78.5 Hyperlipidemia, unspecified; F17.210 Nicotine dependence, cigarettes, uncomplicated; G89.29 Other chronic pain; I10 Essential (primary) hypertension; I25.10 Atherosclerotic heart disease of native coronary artery without angina pectoris; I25.2 Old myocardial infarction; J44.9 Chronic obstructive pulmonary disease, unspecified; K21.9 Gastro-esophageal reflux disease without esophagitis; M81.0 Age-related osteoporosis without current pathological fracture; M19.90 Unspecified osteoarthritis, unspecified site; M54.9 Dorsalgia, unspecified; R26.2 Difficulty in walking, not elsewhere classified; Z79.899 Other long term (current) drug therapy; Z79.82 Long term (current) use of aspirin; Z79.891 Long term (current) use of opiate analgesic; Z82.49 Family history of ischemic heart disease and other diseases of the circulatory system; Y79.3 Surgical instruments, materials and orthopedic devices (including sutures) associated with adverse incidents
CPT/HCPCS: 73501; 84132; 85025